=== PATIENT | female | born 1975 | race Two or more races ===

== ENCOUNTER 2025-01-02 18:42 | Inpatient (IN) | payer MEDICARE, OTHER ==
[~2025-01-02] VITALS: Ht 152.4 cm; Wt 204.2 kg
[~2025-01-02 18:42] MED LIST: BUDE1AER5 INH
--- NOTE | 2025-01-02 19:00 | ED.PDOC ---
SOB-HPI HPI Comments HPI: 49-year-old female who came to the ER for shortness of breath. Patient is morbidly obese, does have COPD and asthma, used to be on oxygen p.r.n. basis, however has been off her oxygen for the past week. The patient developed shortness of breath for the past 20 minutes despite taking albuterol. Patient was saturating 83% on room air. Past Medical History: COPD, asthma, hypertension, endometrial cancer, sleep apnea, morbid obesity Surgical history: Hysterectomy Family history: Unremarkable Personal and Social History: Unremarkable HPI: Poor Historian. All symptoms have resolved prior to arrival wants the patient was placed on supplemental oxygen by EMS. She is back to her baseline. The patient was hypoxic in the 80s at room air. She typically uses oxygen as needed. She did use her breathing treatment inhaler today once. Past Medical History: Past Surgical History: REVIEW OF SYSTEMS: CONSTITUTIONAL: Denies acute: fever, diaphoresis, chills, HEAD: Denies acute: headache, photophobia Eyes: Denies acute: Double vision, vision loss, eye pain, eye discharge. EARS: Denies acute: tinnitus, hearing loss, ear discharge, ear pain, THROAT: Denies acute: sore throat, swelling, difficulty swallowing , pain with swallowing, change in voice. NECK: Denies acute: neck pain, neck swelling, stiff neck. HEART: Denies acute : chest pain, palpitations, LUNGS: Denies acute: wheezing, cough, hemoptysis ABDOMEN: Denies acute: abdominal pain, Nausea, Vomiting, diarrhea, melena , hematemesis, hematochezia SKIN: Denies acute: rash, redness, lesions, itchiness. EXTREMITIES: Denies acute: calf pain, numbness, tingling, weakness, denies pain in extremity. Denies acute: Low back pain. Neuro: Denies acute: focal neurological deficit, motor or sensory focal neurological deficit, tremors, seizure like activity, confusion, dizziness, change in mental status, loss of bowel or bladder function, cauda equina like symptoms. : Denies acute: dysuria, hematuria, flank pain, increase in urinary frequency. PSYCH: Denies acute: hallucination, suicidal ideation, homicidal ideation. FEMALE: Denies acute: abnormal vaginal bleeding, foul odor, unusual discharge. PHYSICAL EXAM: General: ----no----acute distress, awake and alert. Head: normocephalic, atraumatic. No raccoon's eyes, no wills sign. Neck: supple, trachea is midline, no swelling. Throat: Normal phonation. Eyes:, no erythema, no purulent discharge, no proptosis, no icterus. Heart: regular rate, regular rhythm, no significant murmur appreciated. Lungs: no apparent respiratory distress, Able to speak in full sentences. No wheezing, no rhonchi, no crackles. No stridors Clear to auscultation bilaterally. Abdomen: non tender to palpation, non distended, soft, no guarding, no rebound, + bowel sounds. Morbidly obese Neuro: Awake, Alert, oriented to name, self, situation, follows commands GCS=15. Speech is normal. Skin: no petechia, no purpura, no cyanosis, non-pale, not jaundice. Lower extremities: --1/4 b/l - Pitting edema no deformity, no focal swelling, no calf TTP. Makes eye contact. moves all four extremities. Face: no apparent facial droop. ED COURSE: DISCLAIMER: This medical document was created using an electronic medical record system with voice recognition software and computerized dictation system. Although this document has been carefully reviewed, there might still be some phonetic and typographical errors. Occasional wrong-word or "sound-alike" substitutions may have occurred due to the inherent limitations of voice recognition software. These areas are purely typographical due to imperfections of the software programs and do not reflect any compromise in the patient's medical care. Please read the chart carefully and recognize, using context, where these substitutions have occurred. Chief Complaint: Shortness of Breath Time Seen by MD: 19:00 Reviewed notes: Surgical Pathologist Notes, Allergies Information Source: Patient, Emergency Med Personnel Mode of Arrival: EMS Past Medical History PAST MEDICAL HISTORY: Asthma, COPD, HTN Past Medical History (Other): Endometrial cancer, sleep apnea Surgical History: Hysterectomy ROLLER HAND History: Denies all ROLLER HAND Hx Family History Family History: Reviewed,noncontributory to illness Social History Smoker: Non-Smoker Alcohol: Denies ETOH Use Drugs: Denies Drug Use Lives In: Home Was a procedure done? Was a procedure done?: No Differential Dx Differential Diagnosis: Asthma, COPD, Other (DDx include ACS, unstable angina, anxiety, PE, pneumothroax, neoplasm, cardiac ischemia, COPD, asthma, CHF, pleural effusion, tobacco abuse, pneumonia, hypoxia, hypercapnia, anemia., infection/sepsis., pulmonary edema. Asthma, Cardiac tamponade, infection.) X-Ray, Labs, Meds, VS Vital Signs Date Time Temp Pulse Resp B/P (MAP) Pulse Ox O2 Delivery O2 Flow Rate FiO2 01/02/25 21:30 98.0 63 20 95/51 91 3.0 98.0 01/02/25 21:03 73 01/02/25 20:26 20 Nasal Cannula* 3 32 01/02/25 20:08 73 14 91 Nasal Cannula* 2 28 01/02/25 20:08 73 14 95/51 (66) 91 01/02/25 18:55 68 01/02/25 18:51 98.0 66 22 110/56 92 98.0 Lab Test 01/02/25 20:05 01/02/25 19:16 Range/Units Troponin I High Sensitivity 130 *H 111 *H </=34 ng/L White Blood Count 7.7 4.4-10.8 10^3/uL Red Blood Count 4.91 4.0-5.20 10^6/uL Hemoglobin 14.7 12.2-16.2 g/dL Hematocrit 45.4 36.0-46.0 % Mean Corpuscular Volume 92.5 80.0-100.0 fL Mean Corpuscular Hemoglobin 29.9 28.0-32.0 pg Mean Corpuscular Hemoglobin Concent 32.3 32.0-36.0 g/dL Red Cell Distribution Width 14.8 H 11.8-14.3 % Platelet Count 235 140-450 10^3/uL Mean Platelet Volume 8.7 6.9-10.8 fL Neutrophils (%) (Auto) 66.5 37.0-80.0 % Lymphocytes (%) (Auto) 21.8 10.0-50.0 % Monocytes (%) (Auto) 9.5 0.0-12.0 % Eosinophils (%) (Auto) 1.3 0.0-7.0 % Basophils (%) (Auto) 0.9 0.0-2.0 % Neutrophils # (Auto) 5.1 1.6-8.6 10 ^3/uL Lymphocytes # (Auto) 1.7 0.4-5.4 10 ^3/uL Monocytes # (Auto) 0.7 0-1.3 10 ^3/uL Eosinophils # (Auto) 0.1 0-0.8 10 ^3/uL Basophils # (Auto) 0.1 0-0.2 10 ^3/uL Nucleated Red Blood Cells 0.5 % Sodium Level 140 136-145 mmol/L Potassium Level 3.2 L 3.5-5.1 mmol/L Chloride Level 94 L 98-107 mmol/L Carbon Dioxide Level 38 H 20-31 mmol/L Anion Gap 8 5-15 Blood Urea Nitrogen 20 9-23 mg/dL Creatinine 0.95 0.550-1.02 mg/dL Glomerular Filtration Rate Calc 73 >90 mL/min BUN/Creatinine Ratio 21.1 H 10.0-20.0 Serum Glucose 115 H 74-106 mg/dL Calcium Level 8.8 8.7-10.4 mg/dL Total Bilirubin 0.7 0.2-1.0 mg/dL Aspartate Amino Transferase (AST) 46 H 13-40 U/L Alanine Aminotransferase (ALT) 57 H 7-40 U/L Alkaline Phosphatase 80 46-116 U/L B-Type Natriuretic Peptide 324.91 0-100 pg/mL Total Protein 7.0 5.7-8.2 g/dL Albumin 3.8 3.2-4.8 g/dL Current Medications Medications (Trade) Dose Ordered Sig/Batsheva Route Start Time Stop Time Status Last Admin Methylprednisolone Sodium Succinate (Solu Medrol) 125 mg ONCE ONCE IV 01/02/25 20:15 01/02/25 20:25 DC 01/02/25 21:48 Furosemide (Lasix Injection) 20 mg ONCE ONCE IV 01/02/25 20:15 01/02/25 20:25 DC 01/02/25 21:49 Aspirin (Ecotrin Enteric Coated Tablet) 325 mg ONCE ONCE PO 01/02/25 20:30 01/02/25 20:31 DC 01/02/25 21:[address] [address] Ph: [phone] DIAGNOSTIC IMAGING Diagnostic Imaging Report : [id number] Signed PATIENT: JENNIFER BOWEN ACCT: [id number] UNIT: [id number] : 1975 LOC: ER ROOM / BED: / AGE / SEX: 49 / F ADM STATUS: REG ER SERVICE 49 ORDERING PHYSICIAN: GUERO LUIS DO PROCEDURE(s): CXRP - CHEST PORTABLE REASON: sob ORDER NUMBER(s): [id number], ACCESSION NUMBER(s): [id number] CHEST RADIOGRAPH Indication: sob Technique: Single frontal view of the chest was obtained Comparison: None FINDINGS: Lines and Tubes: None Lungs: No focal consolidation. Pleura: No effusion. No pneumothorax. Cardiomediastinal contours: Cardiac size is enlarged. Mediastinum appears enlarged with a somewhat lobulated appearance. Can not exclude mediastinal adenopathy. Recommend CT of the chest with IV contrast. Bones: No acute osseous abnormality. IMPRESSION: 1. Cardiomegaly 2. Questionable mediastinal adenopathy recommend CT of the chest with IV contrast. ATED BY: HORACE DALLAS Jr., DO DICTATED DATE/TIME: 01/02/251931 SIGNED BY: HORACE DALLAS Jr., SIGNED DATE/TIME: 01/02/251931 CC: Time of 1ST Reevaluation: 18:56 Reevaluation 1ST: Unchanged Patient Education/Counseling: Diagnosis, Treatment Family Education/Counseling: No Family Present Comments MDM: patient presented with the above HPI.--dyspnea/hypoxemia----workup was initiated. patient was found with the above mentioned diagnosis. the following medications were ordered: please refer to order lists of meds and tests obtained by myself Dr. Luis. Patient ED course and VS have been stabilized. Patient has been reassessed in the ED and remained in a stable condition. Patient/family voices understanding and is agreeable with plan. Patient has been observed in the ED adequate length of time to insure improvement/stability. Escalation of care considered: Consideration of escalation to observation or admission Patient was given DuoNeb treatment, Solu-Medrol, Lasix. Patient was ADMITTED to the medicine team for further evaluation and treatment of their presentation. All the reports of any imaging studies that were ordered by myself were reviewed by myself. SEPSIS Sepsis Screen Date sepsis recognized/suspect: Jan 02, 2025 Time Sepsis recognized/suspect: 1844 Recent Procedure: No On Antibiotic Therapy: No Respiratory Rate >20: Yes Heart Rate >90: No Temp<36 C (96.8 F) or >38.3 C: No SBP <90 or MAP <65 mmHG: No New Acute Mental Status Change: No Is the patient on CPAP, BIPAP,: No Physician Orders Salvationist (01/02/25 ) Chest Portable (01/02/25 18:50) Albuterol Medneb (Ventolin Medneb) (01/02/25 21:30) Ipratropium Medneb (Atrovent Medneb) (01/02/25 21:30) Furosemide Injection (Lasix Injection) (01/03/25 10:00) Aspirin Tablet (01/03/25 10:00) Famotidine Injection (Pepcid Injection) (01/02/25 22:00) Methylprednisolone Sod Succ (Solu Medrol (01/02/25 22:00) Allergies (01/02/25 21:18) Code Status (01/02/25 21:18) Sodium Chloride Lock (Saline Lock Ns) (01/02/25 22:00) Oxygen Per Hour (01/02/25 21:18) Hydrocodone-Acet 5/325mg Tab ([place] 5/32 (01/02/25 21:30) Ondansetron Hcl (Zofran) (01/02/25 21:30) Docusate Sodium Capsule (Colace Capsule) (01/02/25 21:30) Complete Blood Count (01/03/25 04:00) Comprehensive Metabolic Panel (01/03/25 04:00) Cardiac Diet-2gna,Lofat,Lochol (01/03/25 Breakfast) Echo 2d Mode Cardiac Dop (01/02/25 21:18) Condition: Serious (01/02/25 21:18) Bedrest With Bathroom Privileg (01/02/25 21:18) Maintain Bed Rest (01/02/25 21:18) Sequential Compression Device (01/02/25 ) Vital Signs Date Time Temp Pulse Resp B/P (MAP) Pulse Ox O2 Delivery O2 Flow Rate FiO2 01/02/25 21:30 98.0 63 20 95/51 91 3.0 98.0 01/02/25 21:03 73 01/02/25 20:26 20 Nasal Cannula* 3 32 01/02/25 20:08 73 14 91 Nasal Cannula* 2 28 01/02/25 20:08 73 14 95/51 (66) 91 01/02/25 18:55 68 01/02/25 18:51 98.0 66 22 110/56 92 98.0 Laboratory Tests Test 01/02/25 19:16 White Blood Count 7.7 10^3/uL (4.4-10.8) Medications Medications Dose Ordered Sig/Batsheva Route Start Time Stop Time Status Last Admin Dose Admin Albuterol 2.5 mg STK-MED ONCE .ROUTE 01/02/25 20:20 01/02/25 20:20 DC 01/02/25 20:26 Aspirin 325 mg ONCE ONCE PO 01/02/25 20:30 01/02/25 20:31 DC 01/02/25 21:48 Furosemide 20 mg ONCE ONCE IV 01/02/25 20:15 01/02/25 20:25 DC 01/02/25 21:49 Ipratropium [place] 1 mg STK-MED ONCE .ROUTE 01/02/25 20:20 01/02/25 20:20 DC 01/02/25 20:26 Methylprednisolone Sodium Succinate 125 mg ONCE ONCE IV 01/02/25 20:15 01/02/25 20:25 DC 01/02/25 21:48 Departure 1 Departure Time of Disposition: 20:14 Impression: Primary Impression: Acute respiratory distress Additional Impressions: Elevated troponin Abnormal finding on CT scan Disposition: ADMITTED INPATIENT Admit to: [facility] Condition: Guarded Discharged With: Self Critical Care Note Critical Care Time?: Yes (45 min-critical care time only) Stability Stability form required: No Heart Score Heart Score: Heart Score Response (Comments) Value History Slightly Suspicious 0 EKG Normal 0 Age 45-64 1 Risk Factors 1 or 2 risk factors 1 Troponin 1-2 x's Normal limit 1 Total 3 I personally scribed for GUERO LUIS DO ([email or web address]) on 01/02/25 at 19:00. E lectronically submitted by Ousmane Barnes ([facility]). I personally scribed for GUERO LUIS DO ([email or web address]) on 01/02/25 at 19:54. Electronically submitted by Ousmane Barnes ([email or web address]). GUERO LUIS DO Jan 02, 2025 19:00
--- NOTE | 2025-01-02 19:10 | ECG ---
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
--- NOTE | 2025-01-02 19:35 | DVH ---
CHEST RADIOGRAPH Indication: sob Technique: Single frontal view of the chest was obtained Comparison: None FINDINGS: Lines and Tubes: None Lungs: No focal consolidation. Pleura: No effusion. No pneumothorax. Cardiomediastinal contours: Cardiac size is enlarged. Mediastinum appears enlarged with a somewhat lobulated appearance. Can not exclude mediastinal adenopathy. Recommend CT of the chest with IV contrast. Bones: No acute osseous abnormality. IMPRESSION: 1. Cardiomegaly 2. Questionable mediastinal adenopathy recommend CT of the chest with IV contrast.
[2025-01-02 19:37] LABS: Hematocrit 45.4 % (36.0-46.0); Hemoglobin 14.7 g/dL (12.2-16.2); Mean Corpuscular Hemoglobin 29.9 pg (28.0-32.0); Mean Corpuscular Volume 92.5 fL (80.0-100.0); Nucleated Red Blood Cells % 0.5 %
[2025-01-02 19:49] LABS: Albumin 3.8 g/dL (3.2-4.8); Alkaline Phosphatase 80 U/L (46-116); Anion Gap 8 (5-15); BUN/Creatinine Ratio 21.1 (10.0-20.0); Blood Urea Nitrogen 20 mg/dL (9-23); Calcium 8.8 mg/dL (8.7-10.4); Sodium 140 mmol/L (136-145); Total Protein 7.0 g/dL (5.7-8.2)
[2025-01-02 19:50] LABS: Bilirubin, Total 0.7 mg/dL (0.2-1.0)
[2025-01-02 20:03] LABS: Alanine Aminotransferase 57 U/L (7-40); Carbon Dioxide 38 mmol/L (20-31); Chloride 94 mmol/L (98-107); Glucose 115 mg/dL (74-106); Potassium 3.2 mmol/L (3.5-5.1)
[2025-01-02 20:08] VITALS: PULSE 73; RESP 14; O2SAT 91
[2025-01-02] MEDS: ALBUTEROL SULF 2.5 MG/0.5ML(0.5%) NEB SOLN ONE (20:26)
[2025-01-02] MEDS: IPRATROPIUM BROM 0.5 MG/2.5ML INH SOL ONE (20:26)
[2025-01-02 21:30] VITALS: BP 95/51; PULSE 63; RESP 20; TEMP 98; O2SAT 91
[2025-01-02] MEDS ORDERED: ONDANSETRON HCL 4 MG/2 ML VIAL IV PRN (21:30)
[2025-01-02] MEDS ORDERED: HYDROcodone-ACET 5/325MG TAB PO PRN (21:30)
[2025-01-02] MEDS ORDERED: ACETAMINOPHEN 325 MG TAB PO PRN ×2 (21:30→22:30)
--- NOTE | 2025-01-02 21:33 | DVHHP2 ---
History of Present Illness Reason for Visit: Acute respiratory distress History of Present Illness The patient is a 49-year-old female morbidly obese with past medical history of COPD, asthma, hypertension, sleep apnea, and endometrial cancer who presented to [facility] ED with complaint of shortness of breaths. Patient reports she has been experiencing difficulty breathing despite receiving breathing treatment with albuterol, desaturating at 83% on room air, increased work of breathing, getting worse that prompted this visit. Patient was seen and evaluated in the ED, laboratory data shows WBC 7.7, platelets 235, sodium 140, potassium 3.2, BUN 20, creatinine 0.95, GFR 73, glucose 115, calcium 8.8, BNP 324.91, troponin 111, AST 46, ALT 57, blood pressure 91/51, heart rate 72, temperature 98.0 F, O2 saturation 92% on oxygen. Chest x-ray revealing cardiomegaly, questionable mediastinal adenopathy recommended CT of the chest with IV contrast. Please see medication orders section in the computer. On my assessment, patient denies chest pain, no headache, dizziness, diaphoresis, currently on oxygen, no diarrhea, nausea, vomiting, fever, no chills. Patient was admitted for further evaluation and medical management. Past Medical History Morbid obesity, Asthma, COPD, HTN, Endometrial cancer, Sleep apnea Past Surgical History Hysterectomy Family History Reviewed, noncontributory to the management of this case. Past Social History The patient lives at home, denies smoking, alcohol or illicit drugs abuse. Review of Systems Constitutional: Yes: Weakness, Other (Morbid obesity); No: Fever, Chills, Sweats, Malaise Eyes: No: Pain, Vision change, Conjunctivae inflammation, Eyelid inflammation, Other, Redness ENT: No: Ear pain, Ear discharge, Nose pain, Nose discharge, Nose congestion, Mouth pain, Mouth swelling, Throat pain, Throat swelling, Other Respiratory: No: Cough, Dry, Shortness of breath, SOB with excertion, Wheezing, Hemoptysis, Pleuritic Pain, Sputum, Wheezing, Other Cardiovascular: No: Chest Pain, Palpitations, Orthopnea, Paroxysmal Noc. Dyspnea, Edema, Lt Headedness, Other Gastrointestinal: Abdominal Pain; No: Nausea, Vomiting, Diarrhea, Constipation, Melena, Hematochezia, Other Genitourinary: No Dysuria, No Frequency, No Incontinence, No Hematuria, No Retention, No Other Musculoskeletal: No: other, neck pain, shoulder pain, arm pain, back pain, hand pain, leg pain, foot pain Skin: No: Rash, Lesions, Jaundice, Bruising, Other Neurological: No: Weakness, Numbness, Incoordination, Change in speech, Confusion, Seizures, Other Allergies: Coded Allergies: NO KNOWN ALLERGIES (Unverified , 01/02/25) Medications Current Medications Medications Dose Ordered Sig/Batsheva Route Start Time Stop Time Status Last Admin Dose Admin Albuterol 2.5 mg Q4HPRN PRN NEB 01/02/25 21:30 Ipratropium [place] 0.5 mg Q4HPRN PRN NEB 01/02/25 21:30 Furosemide 40 mg DAILY IV 01/03/25 10:00 Aspirin 81 mg DAILY PO 01/03/25 10:00 Famotidine 20 mg Q12HR IV 01/02/25 22:00 UNV Methylprednisolone Sodium Succinate 40 mg Q8HR IV 01/02/25 22:00 Sodium Chloride 10 ml Q8HR IV 01/02/25 22:00 Acetaminophen/ Hydrocodone Bitart 1 tab Q4HP PRN PO 01/02/25 21:30 Ondansetron HCl 4 mg Q4HP PRN IV 01/02/25 21:30 Docusate Sodium 100 mg BIDPRN PRN PO 01/02/25 21:30 Acetaminophen 650 mg Q6HP PRN PO 01/02/25 21:30 Exam Vital Signs Vital Signs Date Time Temp Pulse Resp B/P (MAP) Pulse Ox O2 Delivery O2 Flow Rate FiO2 01/02/25 21:03 73 01/02/25 20:26 20 Nasal Cannula* 3 32 01/02/25 20:08 91 01/02/25 20:08 95/51 (66) 01/02/25 18:51 98.0 98.0 General Appearance: Alert, Oriented X3, Cooperative, No acute distress HEENT: Atraumatic, PERRLA, EOMI, Mucous membr. moist/pink Respiratory: Normal air movement, Other (On oxygen) Cardiovascular: Regular rate, Normal S1, Normal S2, No murmurs Abdominal: Normal bowel sounds, Soft, No hepatospenomegaly, No masses, Other (Reports tenderness) Extremities: No clubbing, No cyanosis, No edema, Normal pulses, No tenderness/swelling Skin: No rashes, No breakdown, No significant lesion Neuro: Normal speech, Normal tone, Sensation intact, Cranial nerves 3-12 NL, Reflexes 2+ Psych/Mental Status: Mental status NL, Mood NL Labs/Xrays Labs Test 01/02/25 20:05 01/02/25 19:16 Range/Units Troponin I High Sensitivity 130 *H </=34 ng/L White Blood Count 7.7 4.4-10.8 10^3/uL Red Blood Count 4.91 4.0-5.20 10^6/uL Hemoglobin 14.7 12.2-16.2 g/dL Hematocrit 45.4 36.0-46.0 % Mean Corpuscular Volume 92.5 80.0-100.0 fL Mean Corpuscular Hemoglobin 29.9 28.0-32.0 pg Mean Corpuscular Hemoglobin Concent 32.3 32.0-36.0 g/dL Red Cell Distribution Width 14.8 H 11.8-14.3 % Platelet Count 235 140-450 10^3/uL Mean Platelet Volume 8.7 6.9-10.8 fL Neutrophils (%) (Auto) 66.5 37.0-80.0 % Lymphocytes (%) (Auto) 21.8 10.0-50.0 % Monocytes (%) (Auto) 9.5 0.0-12.0 % Eosinophils (%) (Auto) 1.3 0.0-7.0 % Basophils (%) (Auto) 0.9 0.0-2.0 % Neutrophils # (Auto) 5.1 1.6-8.6 10 ^3/uL Lymphocytes # (Auto) 1.7 0.4-5.4 10 ^3/uL Monocytes # (Auto) 0.7 0-1.3 10 ^3/uL Eosinophils # (Auto) 0.1 0-0.8 10 ^3/uL Basophils # (Auto) 0.1 0-0.2 10 ^3/uL Nucleated Red Blood Cells 0.5 % Sodium Level 140 136-145 mmol/L Potassium Level 3.2 L 3.5-5.1 mmol/L Chloride Level 94 L 98-107 mmol/L Carbon Dioxide Level 38 H 20-31 mmol/L Anion Gap 8 5-15 Blood Urea Nitrogen 20 9-23 mg/dL Creatinine 0.95 0.550-1.02 mg/dL Glomerular Filtration Rate Calc 73 >90 mL/min BUN/Creatinine Ratio 21.1 H 10.0-20.0 Serum Glucose 115 H 74-106 mg/dL Calcium Level 8.8 8.7-10.4 mg/dL Total Bilirubin 0.7 0.2-1.0 mg/dL Aspartate Amino Transferase (AST) 46 H 13-40 U/L Alanine Aminotransferase (ALT) 57 H 7-40 U/L Alkaline Phosphatase 80 46-116 U/L B-Type Natriuretic Peptide 324.91 0-100 pg/mL Total Protein 7.0 5.7-8.2 g/dL Albumin 3.8 3.2-4.8 g/dL PATIENT: JENNIFER BOWEN ACCT: [id number] UNIT: [id number] : 1975 LOC: ER ROOM / BED: / AGE / SEX: 49 / F ADM STATUS: REG ER SERVICE 185 ORDERING PHYSICIAN: GUERO LUIS DO PROCEDURE(s): CXRP - CHEST PORTABLE REASON: sob ORDER NUMBER(s): [id number], ACCESSION NUMBER(s): [id number] CHEST RADIOGRAPH Indication: sob Technique: Single frontal view of the chest was obtained Comparison: None FINDINGS: Lines and Tubes: None Lungs: No focal consolidation. Pleura: No effusion. No pneumothorax. Cardiomediastinal contours: Cardiac size is enlarged. Mediastinum appears enlarged with a somewhat lobulated appearance. Can not exclude mediastinal adenopathy. Recommend CT of the chest with IV contrast. Bones: No acute osseous abnormality. IMPRESSION: 1. Cardiomegaly 2. Questionable mediastinal adenopathy recommend CT of the chest with IV contrast. SEPSIS Sepsis Screen Date sepsis recognized/suspect: Jan 02, 2025 Time Sepsis recognized/suspect: 20:08 Recent Procedure: No On Antibiotic Therapy: No Respiratory Rate >20: No Heart Rate >90: No Temp<36 C (96.8 F) or >38.3 C: No SBP <90 or MAP <65 mmHG: No New Acute Mental Status Change: No Is the patient on CPAP, BIPAP,: No Physician Orders Share Holder (01/02/25 ) Chest Portable (01/02/25 18:50) Troponin-I Hs (01/02/25 21:50) Albuterol Medneb (Ventolin Medneb) (01/02/25 21:30) Ipratropium Medneb (Atrovent Medneb) (01/02/25 21:30) Furosemide Injection (Lasix Injection) (01/03/25 10:00) Aspirin Tablet (01/03/25 10:00) Famotidine Injection (Pepcid Injection) (01/02/25 22:00) Methylprednisolone Sod Succ (Solu Medrol (01/02/25 22:00) Allergies (01/02/25:18) Code Status (01/02/25:18) Sodium Chloride Lock (Saline Lock Ns) (01/02/25 22:00) Oxygen Per Hour (01/02/25:18) Hydrocodone-Acet 5/325mg Tab ([place] (01/02/25 21:30) Ondansetron Hcl (Zofran) (01/02/25 21:30) Docusate Sodium Capsule (Colace Capsule) (01/02/25 21:30) Complete Blood Count (01/03/25 04:00) Comprehensive Metabolic Panel (01/03/25 04:00) Cardiac Diet-2gna,Lofat,Lochol (01/03/25 Breakfast) Echo 2d Mode Cardiac Dop (01/02/25:18) Condition: Serious (01/02/25 21:18) Acetaminophen Tablet (Tylenol Tablet) (01/02/25 21:30) Bedrest With Bathroom Privileg (01/02/25:18) Maintain Bed Rest (01/02/25:18) Sequential Compression Device (01/02/25 ) Admit (01/02/25 21:31) Nitroglycerin Sublingual (Ntrostat Subli (01/02/25 21:45) Morphine Sulfate Injection (01/02/25 21:45) Stat Ekg For Chest Pain (01/02/25:31) Notify Md Of Changes From Base (01/02/25 21:31) Supervisor Paper Coating For 24 Hours (01/02/25 21:31) Emergency Dysrhythmia Protocol (01/02/25 21:31) Rhythm Strips Once Every Shift (01/02/25 21:31) Oxygen By Nasal Cannula (11/6/25 21:31) Vital Signs Date Time Temp Pulse Resp B/P (MAP) Pulse Ox O2 Delivery O2 Flow Rate FiO2 01/02/25 21:03 73 01/02/25 20:26 20 Nasal Cannula* 3 32 01/02/25 20:08 73 14 91 Nasal Cannula* 2 28 01/02/25 20:08 73 14 95/51 (66) 91 01/02/25 18:55 68 01/02/25 18:51 98.0 66 22 110/56 92 98.0 Laboratory Tests Test 01/02/25 19:16 White Blood Count 7.7 10^3/uL (4.4-10.8) Medications Medications Dose Ordered Sig/Batsheva Route Start Time Stop Time Status Last Admin Dose Admin Albuterol 2.5 mg STK-MED ONCE .ROUTE 01/02/25 20:20 01/02/25 20:20 DC 01/02/25 20:26 2.5 MG Ipratropium [place] 1 mg STK-MED ONCE .ROUTE 01/02/25 20:20 01/02/25 20:20 DC 01/02/25 20:26 1 MG Assessment/Plan Assessment/Plan Acute respiratory distress Hypokalemia Elevated troponin Morbid obesity Generalized weakness Plan 1. Admit to telemetry unit 2. Breathing treatment 3. Pain control management 4. Management of fluids and electrolytes 5. Consultation for hospitalist 6. Diagnostic tests chest CT 7. DVT prophylaxis-on aspirin 8. Repeat labs CBC, CMP in a.m. 9. Continue with current medical management 10. Treatment plan discussed with patient and RN. Patient verbalized understanding. Plan discussed with: Patient, Other (RN) My Orders Orders - GLEN ROSADO DNP Procedure Category Date Status Time Albuterol Medneb PHA 01/02/25 In Process (Ventolin Medneb) 21:30 Ipratropium Medneb PHA 01/02/25 In Process (Atrovent Medneb) 21:30 Furosemide Injection PHA 01/03/25 In Process (Lasix Injection) 10:00 Aspirin Tablet PHA 01/03/25 In Process 10:00 Famotidine Injection PHA 01/02/25 In Process (Pepcid Injection) 22:00 Methylprednisolone PHA 01/02/25 In Process Sod Succ (Solu Medrol 22:00 Allergies SERENA 01/02/25 In Process 21:18 Code Status CODE 01/02/25 Transmitted 21:18 Sodium Chloride Lock PHA 01/02/25 In Process (Saline Lock Ns) 22:00 Oxygen Per Hour RT 01/02/25 Transmitted 21:18 Hydrocodone-Acet PHA 01/02/25 In Process 5/325mg Tab ([place] 21:30 Ondansetron Hcl PHA 01/02/25 In Process (Zofran) 21:30 Docusate Sodium PHA 01/02/25 In Process Capsule (Colace 21:30 Complete Blood Count LAB 01/03/25 Verified 04:00 Comprehensive LAB 01/03/25 Verified Metabolic Panel 04:00 Cardiac DIET 01/03/25 Transmitted Diet-2gna,Lofat,Lochol Breakfast Echo 2d Mode Cardiac US 01/02/25 Logged DOP 21:18 Condition: Serious SERENA 01/02/25 In Process 21:18 Acetaminophen Tablet PHA 01/02/25 In Process (Tylenol Tablet) 21:30 Bedrest With Bathroom SERENA 01/02/25 In Process Privileg 21:18 Maintain Bed Rest [facility] 01/02/25 In Process 21:18 Sequential [facility] 01/02/25 In Process Compression Device Admit ADMIT 01/02/25 Verified 21:31 Nitroglycerin [facility] 01/02/25 Verified Sublingual (Ntrostat 21:45 Morphine Sulfate PHA 01/02/25 Verified Injection 21:45 Stat Ekg For Chest [facility] 01/02/25 Verified Pain 21:31 Notify Md Of Changes [facility] 01/02/25 Verified From Base 21:31 Supervisor Paper Coating For [facility] 01/02/25 Verified 24 Hours 21:31 Emergency Dysrhythmia [facility] 01/02/25 Verified Protocol 21:31 Rhythm Strips Once [facility] 01/02/25 Verified Every Shift 21:31 Oxygen By Nasal RT 01/02/25 Verified Cannula 21:31 Problem List: (1) Acute respiratory distress (2) Hypokalemia (3) Elevated troponin (4) Morbid obesity (5) Generalized weakness Date of Service: Jan 02, 2025 Billing Provider: GLEN ROSADO DNP Common Visit Codes: [id number] INP/OBS CARE (HIGH) GLEN ROSADO DNP Jan 02, 2025 21:33
[2025-01-02] MEDS ORDERED: MORPHINE SULFATE INJ 2 MG/ml SYRG IV PRN (21:45)
[2025-01-02] MEDS ORDERED: NITROGLYCERIN 0.4 MG SL TAB SL PRN (21:45)
[2025-01-02] MEDS: methylPREDNISolone SOD SUCC 125 MG/2 ML VL IV ONE (21:48)
[2025-01-02] MEDS: ASPirin-EC 325mg tab PO ONE (21:48)
[2025-01-02] MEDS: FUROSEMIDE 20 MG/2 ML VIAL IV ONE (21:49)
[2025-01-02] MEDS: methylPREDNISolone SOD SUCC 40 MG/ML VL IV SCH (21:49)
[2025-01-02] MEDS: SODIUM CHLOR 0.9% PF (SALINE LOCK) 10ML VIAL/SYR IV SCH (21:49)
[2025-01-02] MEDS: FAMOTIDINE (10MG/ML) 2ML VL IV SCH (21:54)
[2025-01-02] MEDS: POTASSIUM CHL 20 Meq TABLET PO ONE (22:52)
[2025-01-02] MEDS: IOHEXOL 300 MG/ML 100ML BOTTLE IJ ONE (23:15)
--- NOTE | 2025-01-02 23:50 | DVH ---
Procedure: CT CHEST WITH CONTRAST Reason for study/Clinical History: Ruled out mediastinal adenopathy Comparison Study: XY CHEST PORTABLE on DOS: 01/02/25 Exam Date: 01/02/2025 11:15 PM Radiation Dose Information: CT Dose: CTDI volume is 18.49 mGy. Dose-length product is 695.38 mGy*cm Contrast: Type of contrast: Omnipaque 300 Contrast inject: 100 cc TECHNIQUE: After the uneventful administration of intravenous contrast intravenously, CT imaging was performed through the chest. Coronal and sagittal reformations were performed by the technologist. FINDINGS: Lower Neck: Visualized portions of the thyroid gland are unremarkable. Aorta and Vasculature: Normal caliber of thoracic aorta. No central, lobar, or segmental pulmonary embolus. Peripheral vessels are poorly opacified. Main pulmonary artery is enlarged measuring 4.4 cm. Prominent azygos vein. Lymph Nodes: No enlarged intrathoracic lymph nodes. Mediastinum: Heart size is normal. There is no pericardial effusion. The esophagus is unremarkable. Lungs: No focal consolidation, pleural effusion or significant pneumothorax. No suspicious pulmonary nodule or mass. Musculoskeletal: No acute osseous abnormality. Upper abdomen: Limited portions of the upper abdomen are unremarkable. IMPRESSION: Prominent azygos vein and central pulmonary arteries with no underlying adenopathy. All CT scans at this medical facility are performed using dose modulation techniques as appropriate to a performed exam including the following: Automated exposure control was utilized; adjustment of the MA and/or KV according to patient size; and use of iterative reconstruction technique.
[2025-01-02 23:58] VITALS: BP 119/61; PULSE 64; O2SAT 95
[2025-01-03] VITALS (13 sets, daily range): BP systolic 107–128; BP diastolic 61–73; PULSE 56–70; RESP 15–21; TEMP 97.9–98.1; O2SAT 90–97
[2025-01-03 04:24] LABS: Hematocrit 48.5 % (36.0-46.0); Hemoglobin 15.7 g/dL (12.2-16.2); Mean Corpuscular Hemoglobin 30.4 pg (28.0-32.0); Mean Corpuscular Volume 94.1 fL (80.0-100.0); Nucleated Red Blood Cells % 0.4 %
[2025-01-03 04:45] LABS: Albumin 4.2 g/dL (3.2-4.8); BUN/Creatinine Ratio 14.6 (10.0-20.0); Bilirubin, Total 0.8 mg/dL (0.2-1.0); Blood Urea Nitrogen 13 mg/dL (9-23); Potassium 3.6 mmol/L (3.5-5.1); Sodium 142 mmol/L (136-145); Total Protein 7.9 g/dL (5.7-8.2)
[2025-01-03 04:47] LABS: Alkaline Phosphatase 80 U/L (46-116); Anion Gap 10 (5-15); Calcium 9.0 mg/dL (8.7-10.4)
[2025-01-03 04:54] LABS: Alanine Aminotransferase 54 U/L (7-40); Carbon Dioxide 38 mmol/L (20-31); Chloride 94 mmol/L (98-107); Glucose 142 mg/dL (74-106)
[2025-01-03] MEDS: ALBUTEROL SULF 2.5 MG/0.5ML(0.5%) NEB SOLN NEB ONE (07:22)
[2025-01-03] MEDS: IPRATROPIUM BROM 0.5 MG/2.5ML INH SOL NEB ONE (07:22)
[2025-01-03] MEDS: ALBUTEROL SULF 2.5 MG/0.5ML(0.5%) NEB SOLN NEB PRN (08:07)
[2025-01-03] MEDS: IPRATROPIUM BROM 0.5 MG/2.5ML INH SOL NEB PRN (08:08)
[2025-01-03] MEDS: FUROSEMIDE 40 MG/4 ML VIAL IV SCH (09:57)
[2025-01-03] MEDS ORDERED: ACETAMINOPHEN 500 MG TAB or CAP PO PRN (11:15)
--- NOTE | 2025-01-03 12:10 | DVHPN2 ---
Progress Note Date Seen: Jan 03, 2025 Has the PT tested + for MRSA If YES, has PT been informed?: No Medical Necessity Reason Pt with a Central, PICC or Fol: No Subjective Patient reports: Feels better (Patient says she is feeling better after nebulizer and steroids.) Changes from previous H/P or p: No Changes Objective vital signs Vital Sign Date Time Temp Pulse Resp B/P (MAP) Pulse Ox O2 Delivery O2 Flow Rate FiO2 01/03/25 09:57 131/59 01/03/25 08:08 90 Nasal Cannula* 4 36 01/03/25 08:08 68 18 01/03/25 08:00 98.2 98.2 Total Intake and Output 01/02/25 01/02/25 01/03/25 15:00 23:00 07:00 Output Total 1500 ml Balance -1500 ml medications Current Medications Medications Dose Ordered Sig/Batsheva Route Start Time Stop Time Status Last Admin Dose Admin Albuterol 2.5 mg Q4HPRN PRN NEB 01/02/25 21:30 01/03/25 08:07 2.5 MG Ipratropium [employer] [place] 0.5 mg Q4HPRN PRN NEB 01/02/25 21:30 01/03/25 08:08 0.5 MG Furosemide 40 mg DAILY IV 01/03/25 10:00 01/03/25 09:57 40 MG Aspirin 81 mg DAILY PO 01/03/25 10:00 01/03/25 09:57 81 MG Famotidine 20 mg Q12HR IV 01/02/25 22:00 01/03/25 09:57 20 MG Methylprednisolone Sodium Succinate 40 mg Q8HR IV 01/02/25 22:00 01/03/25 05:18 40 MG Sodium Chloride 10 ml Q8HR IV 01/02/25 22:00 01/03/25 05:18 10 ML Acetaminophen/ Hydrocodone Bitart 1 tab Q4HP PRN PO 01/02/25 21:30 Ondansetron HCl 4 mg Q4HP PRN IV 01/02/25 21:30 Docusate Sodium 100 mg BIDPRN PRN PO 01/02/25 21:30 Nitroglycerin 0.4 mg Q5MINP PRN SL 01/02/25 21:45 Morphine Sulfate 2 mg Q30M PRN IV 01/02/25 21:45 Acetaminophen 500 mg Q6HP PRN PO 01/03/25 11:15 Examination: GENERAL:Normal, HEENT:Normal, NECK:Normal, LUNGS:Abnormal (Decreased breath sounds bilaterally), CVS:Normal, ABDOMEN:Normal, MSK:Normal, SKIN:Normal, NEURO:Normal laboratory and microbiology Laboratory Tests 01/03/25 03:44 Test 01/03/25 03:44 Range/Units Serum Glucose 142 H 74-106 mg/dL Labs and/or images reviewed: Labs reviewed by me, Image(s) reviewed by me Problem List/Assessment/Plan Problem List/Assessment/Plan Acute respiratory distress Hypokalemia Elevated troponin Morbid obesity Generalized weakness COPD exacerbation CHF IV Lasix 40 mg daily Solu-Medrol 40 mg q.8 hours Oxygen saturation goal greater than 92% CT chest ruled out PE Pending echo for elevated troponin lying [facility] to reconsult home meds Monitor for chest pain Plan discussed with: Patient Date of Service: Jan 03, 2025 Billing Provider: LUCERO GARCIA MD Common Visit Codes: [id number] SAME DATE (HIGH) LUCERO GARCIA MD Jan 03, 2025 12:10
[2025-01-03] MEDS ORDERED: OMEP10CA5 PO (15:51)
[2025-01-03] MEDS ORDERED: ALBUAER3 IN (15:51)
[2025-01-03] MEDS ORDERED: CHLO25TA2 PO (15:51)
[2025-01-03] MEDS ORDERED: POLYSOL2 EACHEYE (15:52)
[2025-01-03] MEDS ORDERED: ACET250T20 PO (15:53)
[2025-01-03] MEDS ORDERED: DOCU-94 PO (15:55)
[2025-01-03] MEDS ORDERED: CHOL20007 PO (15:55)
[2025-01-03] MEDS ORDERED: PRED20TA2 PO (15:55)
[2025-01-03] MEDS ORDERED: OYST500T28 PO (15:55)
[2025-01-03] MEDS ORDERED: TORS20TA20 PO (15:55)
[2025-01-03] MEDS: DOCUSATE SOD 100 MG CAP PO PRN (21:52)
[2025-01-03] MEDS: guaiFENesin-DM 100/10mg/5ml SYR PO PRN (21:53)
[2025-01-04] VITALS (12 sets, daily range): BP systolic 109–125; BP diastolic 48–72; PULSE 46–80; RESP 17–22; TEMP 97.6–98.4; O2SAT 92–99
[2025-01-04 05:48] LABS: Hematocrit 47.3 % (36.0-46.0); Hemoglobin 15.2 g/dL (12.2-16.2); Mean Corpuscular Hemoglobin 29.5 pg (28.0-32.0); Mean Corpuscular Volume 91.7 fL (80.0-100.0); Nucleated Red Blood Cells % 0.1 %
[2025-01-04 06:05] LABS: Anion Gap 8 (5-15); Potassium 3.6 mmol/L (3.5-5.1); Sodium 140 mmol/L (136-145)
[2025-01-04 06:06] LABS: Calcium 9.4 mg/dL (8.7-10.4)
[2025-01-04 06:10] LABS: Carbon Dioxide 39 mmol/L (20-31); Chloride 93 mmol/L (98-107)
[2025-01-04 06:11] LABS: BUN/Creatinine Ratio 27.0 (10.0-20.0); Blood Urea Nitrogen 20 mg/dL (9-23)
[2025-01-04 06:19] LABS: Glucose 128 mg/dL (74-106)
--- NOTE | 2025-01-04 17:46 | DVHPN2 ---
Subjective Overnight events noted. Patient currently denies any shortness of breath. She states that she feels diet. Changes from previous H/P or p: No Changes Eyes: No Pain, No Vision change, No Conjunctivae inflammation, No Eyelid inflammation, No Other, No Redness ENT: No Ear pain, No Ear discharge, No Nose pain, No Nose discharge, No Nose congestion, No Mouth pain, No Mouth swelling, No Throat pain, No Throat swelling, No Other Cardiovascular: No Chest Pain, No Palpitations, No Orthopnea, No Paroxysmal Noc. Dyspnea, No Edema, No Lt Headedness, No Other Respiratory: No Cough, No Dry, No Shortness of breath, No SOB with excertion, No Wheezing, No Hemoptysis, No Pleuritic Pain, No Sputum, No Other Gastrointestinal: Abdominal Pain Genitourinary: No Dysuria, No Frequency, No Incontinence, No Hematuria, No Retention, No Other Musculoskeletal: No other, No neck pain, No shoulder pain, No arm pain, No back pain, No hand pain, No leg pain, No foot pain Skin: No Rash, No Lesions, No Jaundice, No Bruising, No Other Objective Vitals Vital Signs Date Time Temp Pulse Resp B/P (MAP) Pulse Ox O2 Delivery O2 Flow Rate FiO2 01/04/25 17:00 97.6 46 20 120/67 (84) 97 97.6 01/04/25 08:00 Nasal Cannula* 3 32 Intake/Output Intake and Output 01/04/25 07:00 Intake Total 600 ml Balance 600 ml Intake Oral 600 ml # Voids 4 Exam HEENT pupils are reactive Neck is supple CVS S1-S2 regular rate and rhythm Respiratory bilateral equal breath sounds GI positive bowel sound Extremity no edema [employer] no motor deficit Medications Current Medications Medications Dose Ordered Sig/Batsheva Route Start Time Stop Time Status Last Admin Dose Admin Albuterol 2.5 mg Q4HPRN PRN NEB 01/02/25 21:30 01/03/25 23:54 2.5 MG Ipratropium [place] 0.5 mg Q4HPRN PRN NEB 01/02/25 21:30 01/03/25 23:54 0.5 MG Furosemide 40 mg DAILY IV 01/03/25 10:00 01/04/25 09:56 40 MG Aspirin 81 mg DAILY PO 01/03/25 10:00 01/04/25 09:56 81 MG Famotidine 20 mg Q12HR IV 01/02/25 22:00 01/04/25 09:56 20 MG Methylprednisolone Sodium Succinate 40 mg Q8HR IV 01/02/25 22:00 01/04/25 14:21 40 MG Sodium Chloride 10 ml Q8HR IV 01/02/25 22:00 01/04/25 14:22 10 ML Acetaminophen/ Hydrocodone Bitart 1 tab Q4HP PRN PO 01/02/25 21:30 Ondansetron HCl 4 mg Q4HP PRN IV 01/02/25 21:30 Docusate Sodium 100 mg BIDPRN PRN PO 01/02/25 21:30 01/03/25 21:52 100 MG Nitroglycerin 0.4 mg Q5MINP PRN SL 01/02/25 21:45 Morphine Sulfate 2 mg Q30M PRN IV 01/02/25 21:45 Acetaminophen 500 mg Q6HP PRN PO 01/03/25 11:15 Guaifenesin/ Dextromethorphan 10 ml Q6HPRN PRN PO 01/03/25 21:15 01/03/25 21:53 10 ML Laboratory Results Laboratory Tests 01/04/25 04:22 Chemistry Test 01/04/25 04:22 Calcium Level 9.4 mg/dL (8.7-10.4) Assessment/Plan Assessment/Plan 49-year-old female with known history of morbid obesity classIII, chronic asthma, congestive heart failure, chronic respiratory failure on home O2, obesity hypoventilation syndrome with sleep apnea presents to hospital with increasing shortness of breath found to have 1. Acute on chronic hypoxic respiratory failure 2. Acute on chronic asthma exacerbation next 3. Morbid obesity classIII 4. Obesity hypoventilation syndrome currently on CPAP at night 5. Elevated troponin. -cardiology consultation, continue O2 supplementation med nebs IV Solu-Medrol -diet weight reduction exercise counseling, CPAP at night Plan discussed with: Patient Date of Service: Jan 04, 2025 Billing Provider: ERASMO BENAVIDEZ MD Common Visit Codes: [id number] INP/OBS CARE(HIGH) ERASMO BENAVIDEZ MD Jan 04, 2025 17:46
[2025-01-05] VITALS (12 sets, daily range): BP systolic 123–146; BP diastolic 59–87; PULSE 49–100; RESP 18–21; TEMP 97–98.7; O2SAT 93–98
[2025-01-05 07:22] LABS: Hematocrit 45.6 % (36.0-46.0); Hemoglobin 14.8 g/dL (12.2-16.2); Mean Corpuscular Hemoglobin 30.2 pg (28.0-32.0); Mean Corpuscular Volume 93.0 fL (80.0-100.0); Nucleated Red Blood Cells % 0.2 %
[2025-01-05 08:15] LABS: Calcium 9.1 mg/dL (8.7-10.4)
[2025-01-05 08:20] LABS: BUN/Creatinine Ratio 22.4 (10.0-20.0); Blood Urea Nitrogen 19 mg/dL (9-23)
[2025-01-05 08:21] LABS: Carbon Dioxide 37 mmol/L (20-31); Glucose 116 mg/dL (74-106)
[2025-01-05 08:51] LABS: Anion Gap 9 (5-15); Chloride 95 mmol/L (98-107); Potassium 4.0 mmol/L (3.5-5.1); Sodium 141 mmol/L (136-145)
--- NOTE | 2025-01-05 11:03 | DVHSR ---
APPROVED REPORT EXAM: LIMITED Two-dimensional and M-mode echocardiogram with Doppler and color Doppler. Blood Pressure: 109/72 mmHg INDICATION elevated bnp RISK FACTORS Obesity: Height: 60, Weight: 450 DIMENSIONS LVDd 4.6 (3.8-5.7cm) LA (2D) 4.2 (1.9-4.0cm) Aortic Root 2.7 (2.0-3.7cm) LVDs 3.4 (2.5-4.0cm) LA (MM) (1.9-4.0cm) Aortic Cusp Exc 1.7 (1.5-2.0cm) EF (%) 50.0 (55-70%) Rt. Atrium 3.8 (1.9-4.0cm) Asc. Aorta cm IVSd 1.4 (0.7-1.1cm) RV (D) (1.8-2.4cm) PWd 1.0 (0.7-1.1cm) Mitral Valve Mitral Mitral Stenosis E wave 0.79m/s MV Mean GR. mmHg A wave 0.48m/s MV Peak GR. 51mmHg E/A ratio 1.6 2D MVA cm2 DECEL Time 247ms PRESS 1/2 Time ms Aortic Valve Aortic Valve Aortic Stenosis V1 0.64m/s AO Mean GR. mmHg V2 1.46m/s AO Peak GR. 9mmHg LVOT Diameter 2.1 (1.8-2.4cm) Doppler DANNY 1.52cm2 Tricuspid Valve TR Velocity 2.77m/s RVSP 31mmHg Other Information Technically limited study due to patient position.body habitus. Conclusion SEPTAL HYPERTHROPHY EF >55% LIMITED ECHO WINDOWS
[2025-01-05 14:53] LABS: Base Excess 12.6 mmol/L (-2.0-3.0)
--- NOTE | 2025-01-05 16:55 | DVHPN2 ---
Subjective Overnight events noted. Patient currently denies any shortness of breath. Patient is requesting DME walker. Order ABG on room air to assess for home oxygen requirement. Changes from previous H/P or p: No Changes Eyes: No Pain, No Vision change, No Conjunctivae inflammation, No Eyelid inflammation, No Other, No Redness ENT: No Ear pain, No Ear discharge, No Nose pain, No Nose discharge, No Nose congestion, No Mouth pain, No Mouth swelling, No Throat pain, No Throat swelling, No Other Cardiovascular: No Chest Pain, No Palpitations, No Orthopnea, No Paroxysmal Noc. Dyspnea, No Edema, No Lt Headedness, No Other Respiratory: No Cough, No Dry, No Shortness of breath, No SOB with excertion, No Wheezing, No Hemoptysis, No Pleuritic Pain, No Sputum, No Other Gastrointestinal: Abdominal Pain Genitourinary: No Dysuria, No Frequency, No Incontinence, No Hematuria, No Retention, No Other Musculoskeletal: No other, No neck pain, No shoulder pain, No arm pain, No back pain, No hand pain, No leg pain, No foot pain Skin: No Rash, No Lesions, No Jaundice, No Bruising, No Other Objective Vitals Vital Signs Date Time Temp Pulse Resp B/P (MAP) Pulse Ox O2 Delivery O2 Flow Rate FiO2 01/05/25 13:41 100 20 97 01/05/25 13:26 Nasal Cannula* 2 28 01/05/25 13:00 97.4 123/59 (80) 97.4 Intake/Output Intake and Output 01/05/25 07:00 Intake Total 1210 ml Balance 1210 ml Intake Oral 1210 ml # Voids 7 Exam HEENT pupils are reactive Neck is supple CVS S1-S2 regular rate and rhythm Respiratory bilateral equal breath sounds GI positive bowel sound Extremity no edema 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 Medications Current Medications Medications Dose Ordered Sig/Batsheva Route Start Time Stop Time Status Last Admin Dose Admin Albuterol 2.5 mg Q4HPRN PRN NEB 01/02/25 21:30 01/05/25 13:26 2.5 MG Ipratropium [place] 0.5 mg Q4HPRN PRN NEB 01/02/25 21:30 01/05/25 13:26 0.5 MG Furosemide 40 mg DAILY IV 01/03/25 10:00 01/05/25 10:17 40 MG Aspirin 81 mg DAILY PO 01/03/25 10:00 01/05/25 10:23 81 MG Famotidine 20 mg Q12HR IV 01/02/25 22:00 01/05/25 10:17 20 MG Methylprednisolone Sodium Succinate 40 mg Q8HR IV 01/02/25 22:00 01/05/25 14:00 40 MG Sodium Chloride 10 ml Q8HR IV 01/02/25 22:00 01/05/25 13:13 10 ML Acetaminophen/ Hydrocodone Bitart 1 tab Q4HP PRN PO 01/02/25 21:30 Ondansetron HCl 4 mg Q4HP PRN IV 01/02/25 21:30 Docusate Sodium 100 mg BIDPRN PRN PO 01/02/25 21:30 01/05/25 15:30 100 MG Nitroglycerin 0.4 mg Q5MINP PRN SL 01/02/25 21:45 Morphine Sulfate 2 mg Q30M PRN IV 01/02/25 21:45 Acetaminophen 500 mg Q6HP PRN PO 01/03/25 11:15 Guaifenesin/ Dextromethorphan 10 ml Q6HPRN PRN PO 01/03/25 21:15 01/03/25 21:53 10 ML Laboratory Results Laboratory Tests 01/05/25 06:00 Chemistry Test 01/05/25 06:00 Calcium Level 9.1 mg/dL (8.7-10.4) Blood Gas Results Test 01/05/25 14:45 Arterial Blood pH 7.456 (7.350-7.450) FiO2 % 21.0 Assessment/Plan Assessment/Plan 49-year-old female with known history of morbid obesity classIII, chronic asthma, congestive heart failure, chronic respiratory failure on home O2, obesity hypoventilation syndrome with sleep apnea presents to hospital with increasing shortness of breath found to have 1. Acute on chronic hypoxic respiratory failure secondary to acute asthma exacerbation as well as component of acute CHF exacerbation with a probably diastolic dysfunction. 2. Acute asthma exacerbation 3. Acute CHF exacerbation with a probably diastolic dysfunction 4. Morbid obesity classIII 5. Obesity hypoventilation syndrome currently on CPAP at night 5. Elevated troponin suspect demand ischemia secondary to acute CHF exacerbation. -cardiology consultation, continue O2 supplementation med nebs IV Solu-Medrol -diet weight reduction exercise counseling, CPAP at night -please arrange home O2 at 2 L by continuous nasal cannula. Plan discussed with: Patient My Orders Orders - ERASMO BENAVIDEZ MD Procedure Category Date Status Time * Cardiology Consult CONS 01/04/25 Transmitted 17:43 * Electronic Scale Subassembler CONS 01/05/25 Transmitted Consult Pt Request For Service PT 01/05/25 Logged 14:26 Abg W/ Co-Ox RT 01/05/25 Logged 14:26 Date of Service: Jan 05, 2025 Billing Provider: ERASMO BENAVIDEZ MD Common Visit Codes: [id number] INP/OBS CARE(HIGH) ERASMO BENAVIDEZ MD Jan 05, 2025 16:55
[2025-01-06] VITALS (14 sets, daily range): BP systolic 112–148; BP diastolic 53–90; PULSE 46–74; RESP 17–19; TEMP 97.5–98.5; O2SAT 85–100
[2025-01-06 05:39] LABS: Hematocrit 46.2 % (36.0-46.0); Hemoglobin 15.2 g/dL (12.2-16.2); Mean Corpuscular Hemoglobin 30.4 pg (28.0-32.0); Mean Corpuscular Volume 92.1 fL (80.0-100.0); Nucleated Red Blood Cells % 0.0 %
[2025-01-06 05:53] LABS: Potassium 4.1 mmol/L (3.5-5.1); Sodium 141 mmol/L (136-145)
[2025-01-06 05:54] LABS: Anion Gap 6 (5-15); Calcium 9.3 mg/dL (8.7-10.4); Carbon Dioxide 38 mmol/L (20-31); Chloride 97 mmol/L (98-107)
[2025-01-06 05:59] LABS: BUN/Creatinine Ratio 27.0 (10.0-20.0); Blood Urea Nitrogen 20 mg/dL (9-23); Glucose 127 mg/dL (74-106)
--- NOTE | 2025-01-06 16:13 | DVHPN2 ---
Subjective Overnight events noted. Patient currently denies any shortness of breath. Patient is requesting DME walker. Order ABG on room air to assess for home oxygen requirement. Changes from previous H/P or p: No Changes Eyes: No Pain, No Vision change, No Conjunctivae inflammation, No Eyelid inflammation, No Other, No Redness ENT: No Ear pain, No Ear discharge, No Nose pain, No Nose discharge, No Nose congestion, No Mouth pain, No Mouth swelling, No Throat pain, No Throat swelling, No Other Cardiovascular: No Chest Pain, No Palpitations, No Orthopnea, No Paroxysmal Noc. Dyspnea, No Edema, No Lt Headedness, No Other Respiratory: No Cough, No Dry, No Shortness of breath, No SOB with excertion, No Wheezing, No Hemoptysis, No Pleuritic Pain, No Sputum, No Other Gastrointestinal: Abdominal Pain Genitourinary: No Dysuria, No Frequency, No Incontinence, No Hematuria, No Retention, No Other Musculoskeletal: No other, No neck pain, No shoulder pain, No arm pain, No back pain, No hand pain, No leg pain, No foot pain Skin: No Rash, No Lesions, No Jaundice, No Bruising, No Other Objective Vitals Vital Signs Date Time Temp Pulse Resp B/P (MAP) Pulse Ox O2 Delivery O2 Flow Rate FiO2 01/06/25 13:21 97.5 51 19 124/68 (86) 97 97.5 01/06/25 09:09 Nasal Cannula 2.0 01/06/25 09:09 28 Intake/Output Intake and Output 01/06/25 07:00 Intake Total 1050 ml Balance 1050 ml Intake Oral 1050 ml # Voids 1 Exam HEENT pupils are reactive Neck is supple CVS S1-S2 regular rate and rhythm Respiratory bilateral equal breath sounds GI positive bowel sound 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 Medications Current Medications Medications Dose Ordered Sig/Batsheva Route Start Time Stop Time Status Last Admin Dose Admin Albuterol 2.5 mg Q4HPRN PRN NEB 01/02/25 21:30 01/06/25 09:09 2.5 MG Ipratropium [place] 0.5 mg Q4HPRN PRN NEB 01/02/25 21:30 01/06/25 09:08 0.5 MG Furosemide 40 mg DAILY IV 01/03/25 10:00 01/06/25 08:39 40 MG Aspirin 81 mg DAILY PO 01/03/25 10:00 01/06/25 08:37 81 MG Famotidine 20 mg Q12HR IV 01/02/25 22:00 01/06/25 08:37 20 MG Methylprednisolone Sodium Succinate 40 mg Q8HR IV 01/02/25 22:00 01/06/25 13:37 40 MG Sodium Chloride 10 ml Q8HR IV 01/02/25 22:00 01/06/25 13:37 10 ML Acetaminophen/ Hydrocodone Bitart 1 tab Q4HP PRN PO 01/02/25 21:30 Ondansetron HCl 4 mg Q4HP PRN IV 01/02/25 21:30 Docusate Sodium 100 mg BIDPRN PRN PO 01/02/25 21:30 01/06/25 05:31 100 MG Nitroglycerin 0.4 mg Q5MINP PRN SL 01/02/25 21:45 Morphine Sulfate 2 mg Q30M PRN IV 01/02/25 21:45 Acetaminophen 500 mg Q6HP PRN PO 01/03/25 11:15 Guaifenesin/ Dextromethorphan 10 ml Q6HPRN PRN PO 01/03/25 21:15 01/06/25 08:37 10 ML Laboratory Results Laboratory Tests 01/06/25 05:19 Chemistry Test 01/06/25 05:19 Calcium Level 9.3 mg/dL (8.7-10.4) Assessment/Plan Assessment/Plan 49-year-old female with known history of morbid obesity classIII, chronic asthma, congestive heart failure, chronic respiratory failure on home O2, obesity hypoventilation syndrome with sleep apnea presents to hospital with increasing shortness of breath found to have 1. Acute on chronic hypoxic respiratory failure secondary to acute asthma exacerbation as well as component of acute CHF exacerbation with a probably diastolic dysfunction. 2. Acute asthma exacerbation 3. Acute CHF exacerbation with a probably diastolic dysfunction 4. Morbid obesity classIII 5. Obesity hypoventilation syndrome currently on CPAP at night 5. Elevated troponin suspect demand ischemia secondary to acute CHF exacerbation. -cardiology consultation, continue O2 supplementation med nebs IV Solu-Medrol -diet weight reduction exercise counseling, CPAP at night -please arrange home O2 at 2 L by continuous nasal cannula. Please arrange DME front wheel walker. Plan discussed with: Patient My Orders Orders - ERASMO BENAVIDEZ MD Procedure Category Date Status Time * Senior Talent Management Consultant CONS 01/05/25 Transmitted Consult 16:56 Date of Service: Jan 06, 2025 Billing Provider: ERASMO BENAVIDEZ MD Common Visit Codes: [id number] INP/OBS CARE(HIGH) ERASMO BENAVIDEZ MD Jan 06, 2025 16:13
[2025-01-07] VITALS (9 sets, daily range): BP systolic 100–132; BP diastolic 48–70; PULSE 53–67; RESP 18–19; TEMP 36.3; O2SAT 90–97
[2025-01-07 06:13] LABS: Hematocrit 47.1 % (36.0-46.0); Hemoglobin 15.6 g/dL (12.2-16.2); Mean Corpuscular Hemoglobin 30.7 pg (28.0-32.0); Mean Corpuscular Volume 92.7 fL (80.0-100.0); Nucleated Red Blood Cells % 0.1 %
[2025-01-07 06:34] LABS: Anion Gap 9 (5-15); Potassium 4.0 mmol/L (3.5-5.1); Sodium 142 mmol/L (136-145)
[2025-01-07 06:36] LABS: Calcium 9.2 mg/dL (8.7-10.4)
[2025-01-07 06:41] LABS: BUN/Creatinine Ratio 24.4 (10.0-20.0); Blood Urea Nitrogen 21 mg/dL (9-23)
[2025-01-07 06:43] LABS: Carbon Dioxide 38 mmol/L (20-31); Chloride 95 mmol/L (98-107); Glucose 138 mg/dL (74-106)
[2025-01-07] MEDS ORDERED: PRED20TA2 PO (16:06)
--- NOTE | 2025-01-07 17:01 | DVHDS2 ---
Discharge Summary Date of Admission Jan 02, 2025 at 21:31 Date of Discharge: Jan 07, 2025 Labs/Diagnostic Data: Laboratory Results Test 01/07/25 04:56 01/05/25 14:45 01/03/25 03:44 01/02/25 22:09 White Blood Count 8.2 10^3/uL (4.4-10.8) Red Blood Count 5.08 10^6/uL (4.0-5.20) Hemoglobin 15.6 g/dL (12.2-16.2) Hematocrit 47.1 % (36.0-46.0) Mean Corpuscular Volume 92.7 fL (80.0-100.0) Mean Corpuscular Hemoglobin 30.7 pg (28.0-32.0) Mean Corpuscular Hemoglobin Concent 33.1 g/dL (32.0-36.0) Red Cell Distribution Width 14.6 % (11.8-14.3) Platelet Count 248 10^3/uL (140-450) Mean Platelet Volume 8.9 fL (6.9-10.8) Neutrophils (%) (Auto) 87.0 % (37.0-80.0) Lymphocytes (%) (Auto) 6.0 % (10.0-50.0) Monocytes (%) (Auto) 7.0 % (0.0-12.0) Eosinophils (%) (Auto) 0.0 % (0.0-7.0) Basophils (%) (Auto) 0.0 % (0.0-2.0) Neutrophils # (Auto) 7.1 10 ^3/uL (1.6-8.6) Lymphocytes # (Auto) 0.5 10 ^3/uL (0.4-5.4) Monocytes # (Auto) 0.6 10 ^3/uL (0-1.3) Eosinophils # (Auto) 0 10 ^3/uL (0-0.8) Basophils # (Auto) 0 10 ^3/uL (0-0.2) Nucleated Red Blood Cells 0.1 % Sodium Level 142 mmol/L (136-145) Potassium Level 4.0 mmol/L (3.5-5.1) Chloride Level 95 mmol/L (98-107) Carbon Dioxide Level 38 mmol/L (20-31) Anion Gap 9 (5-15) Blood Urea Nitrogen 21 mg/dL (9-23) Creatinine 0.86 mg/dL (0.550-1.02) Glomerular Filtration Rate Calc 83 mL/min (>90) BUN/Creatinine Ratio 24.4 (10.0-20.0) Serum Glucose 138 mg/dL (74-106) Calcium Level 9.2 mg/dL (8.7-10.4) Blood Gas Specimen Type Arterial Blood Gas Sample Site Right radial Blood Gas Patient Temperature 37.0 Arterial Blood Date Drawn Arterial Blood pH 7.456 (7.350-7.450) Arterial Blood Partial Pressure CO2 57.2 mmHg (32.0-45.0) Arterial Blood Partial Pressure O2 59.9 mmHg (83.0-108.0) Arterial Blood HCO3 39.4 mmol/L (21.0-28.0) Arterial Blood Oxygen Saturation 90.3 % (94.0-98.0) Arterial Blood Base Excess 12.6 mmol/L (-2.0-3.0) Arterial Blood Oxyhemoglobin 88.9 % (94.0-98.0) Arterial Blood Carboxyhemoglobin 1.3 % (0.5-1.5) Arterial Blood Methemoglobin 0.2 % (0.0-1.5) Jesus Test Yes Blood Gas Total Hemoglobin 16.50 g/dL (12.0-16.0) Blood Gas Modality Room air FiO2 % 21.0 Total Bilirubin 0.8 mg/dL (0.2-1.0) Aspartate Amino Transferase (AST) 44 U/L (13-40) Alanine Aminotransferase (ALT) 54 U/L (7-40) Alkaline Phosphatase 80 U/L (46-116) Total Protein 7.9 g/dL (5.7-8.2) Albumin 4.2 g/dL (3.2-4.8) Troponin I High Sensitivity 122 ng/L (</=34) Test 01/02/25 19:16 B-Type Natriuretic Peptide 324.91 pg/mL (0-100) Other Laboratory Tests 01/07/25 04:56 Brief Hx & Hospital Course: 49-year-old female with known history of morbid obesity classIII, chronic asthma, congestive heart failure, chronic respiratory failure on home O2, obesity hypoventilation syndrome with sleep apnea presents to hospital with increasing shortness of breath found to have acute on chronic hypoxic respiratory failure secondary to acute asthma as well as COPD exacerbation as well as acute CHF exacerbation with diastolic dysfunction. Patient was given IV diuretics Solu-Medrol. Patient was seen by Cardiology. Patient did qualify for home O2 and front wheel walker patient. Once that is arranged patient can be discharged home with a close follow up as an outpatient with the PCP. Condition at Discharge: Stable Final Diagnosis/Problems List 49-year-old female with known history of morbid obesity classIII, chronic asthma, congestive heart failure, chronic respiratory failure on home O2, obesity hypoventilation syndrome with sleep apnea presents to hospital with increasing shortness of breath found to have 1. Acute on chronic hypoxic respiratory failure secondary to acute asthma exacerbation as well as component of acute CHF exacerbation with a probably diastolic dysfunction. 2. Acute asthma exacerbation 3. Acute CHF exacerbation with a probably diastolic dysfunction 4. Morbid obesity classIII 5. Obesity hypoventilation syndrome currently on CPAP at night 5. Elevated troponin suspect demand ischemia secondary to acute CHF exacerbation. Discharge Disposition: Home with Health Services SNF Discharge Will this Physician continue t: No Discharge Instruct/Medications Diet: Cardiac 2g Na,low cholest Activity: No Restrictions, As Tolerated Follow Up/Referral: Please follow up with the PCP in one week Medications: Medication as reconciled, new prescription as prescribed. New Medications: Prednisone (Prednisone) 20 Mg Tab 40 MG PO DAILY for 5 Days, #10 MG Continued Medications: Acetazolamide (Acetazolamide) 250 Mg Tab 500 MG PO Q6HR PRN for PAIN SCALE 1 THRU 6 for 30 Days, MG 0 Refills Albuterol Sulfate (Ventolin Mdi) 90 Mcg Ih 90 MCG IN, INH Budesonide-Formoterol Fumarate (Budesonide/Formoterol Fum 80-4.5 Mcg/Act) 1 Aer Aer 1 AER INH UD for 30 Days, #10.2 Chlorthalidone (Chlorthalidone) 25 Mg Tab 1 TAB PO DAILY Cholecalciferol (Vitamin D3) 2,000 Unit Tab 1 TAB PO DAILY, #30 TAB 5 Refills Docusate Sodium (Colace) 100 Mg Cap 1 CAP PO BID, #30 CAP Omeprazole (Omeprazole Dr) 10 Mg Cap 1 CAP PO DAILY Oyster Shell Calcium (Calcium Oyster Shell) 500 Mg Tab 500 MG PO DAILY, TAB Polyethylene Glycol-Propylene (Systane) Barbara 1 DROP EACHEYE DAILY PRN for DRY EYES, #30 ML 5 Refills Torsemide (Torsemide) 20 Mg Tab 20 MG PO DAILY, MG Discontinued Medications: Prednisone (Prednisone) 20 Mg Tab 20 MG PO, MG Scheduled Budesonide-Formoterol Fumarate (Budesonide/Formoterol Fum 80-4.5 Mcg/Act), 1 AER INH UD, (Reported) Chlorthalidone (Chlorthalidone), 1 TAB PO DAILY, (Reported) Cholecalciferol (Vitamin D3), 1 TAB PO DAILY, (Reported) Docusate Sodium (Colace), 1 CAP PO BID, (Reported) Omeprazole (Omeprazole Dr), 1 CAP PO DAILY, (Reported) Oyster Shell Calcium (Calcium Oyster Shell), 500 MG PO DAILY, (Reported) Prednisone (Prednisone), 40 MG PO DAILY Torsemide (Torsemide), 20 MG PO DAILY, (Reported) Scheduled PRN Acetazolamide (Acetazolamide), 500 MG PO Q6HR PRN for PAIN SCALE 1 THRU 6, (Reported) Polyethylene Glycol-Propylene (Systane), 1 DROP EACHEYE DAILY PRN for DRY EYES, (Reported) Miscellaneous Medications Albuterol Sulfate (Ventolin Mdi), 90 MCG IN, (Reported) Prednisone (Prednisone), 20 MG PO, (Reported) Discharge Statement: "Patient was advised to return to the ER or call 911 if any headaches, dizziness, shortness of breath, chest pain, abdominal pain, bleeding, fevers, or worsening of medical condition. Patient was counseled about treatment plan, medications, possible side effects, patientverbalized understanding. All questions were answered to the best of my ability. This discharge took greater then 30 minutes in planning, reviewing documentation, counseling the patient, and discussing with other team members." ASSESSMENT ASSESSMENT Assessment 49-year-old female with known history of morbid obesity classIII, chronic asthma, congestive heart failure, chronic respiratory failure on home O2, obesity hypoventilation syndrome with sleep apnea presents to hospital with increasing shortness of breath found to have 1. Acute on chronic hypoxic respiratory failure secondary to acute asthma exacerbation as well as component of acute CHF exacerbation with a probably diastolic dysfunction. 2. Acute asthma exacerbation 3. Acute CHF exacerbation with a probably diastolic dysfunction 4. Morbid obesity classIII 5. Obesity hypoventilation syndrome currently on CPAP at night 5. Elevated troponin suspect demand ischemia secondary to acute CHF exacerbation. Date of Service: Jan 07, 2025 Billing Provider: ERASMO BENAVIDEZ MD Common Visit Codes: [id number] DISCH DAY >30min ERASMO BENAVIDEZ MD Jan 07, 2025 17:01
== END 2025-01-07 18:05 | disposition home or self-care (01) | DRG 291 ==
LOC: EDBD 18:42 → ER 18:50 → OVERFLOW 21:31 → TELE-CENTR 01-03 15:31
PROVIDERS: ADMIT Internal Medicine; ATTEND Internal Medicine
PROC: 5A09357 Assistance with Respiratory Ventilation, Less than 24 Consecutive Hours, Continuous Positive Airway Pressure (ICD-10-PCS; 2025-01-02)
PROC: 5A09357 Assistance with Respiratory Ventilation, Less than 24 Consecutive Hours, Continuous Positive Airway Pressure (ICD-10-PCS; principal; 2025-01-03)
PROC: 5A09357 Assistance with Respiratory Ventilation, Less than 24 Consecutive Hours, Continuous Positive Airway Pressure (ICD-10-PCS; 2025-01-04)
PROC: 5A09357 Assistance with Respiratory Ventilation, Less than 24 Consecutive Hours, Continuous Positive Airway Pressure (ICD-10-PCS; 2025-01-05)
PROC: 5A09357 Assistance with Respiratory Ventilation, Less than 24 Consecutive Hours, Continuous Positive Airway Pressure (ICD-10-PCS; 2025-01-06)
PROC: 5A09357 Assistance with Respiratory Ventilation, Less than 24 Consecutive Hours, Continuous Positive Airway Pressure (ICD-10-PCS; 2025-01-07)
DX: I11.0 Hypertensive heart disease with heart failure (principal); I50.33 Acute on chronic diastolic (congestive) heart failure; J96.21 Acute and chronic respiratory failure with hypoxia; I24.89 Other forms of acute ischemic heart disease; J44.1 Chronic obstructive pulmonary disease with (acute) exacerbation; E66.2 Morbid (severe) obesity with alveolar hypoventilation; J45.901 Unspecified asthma with (acute) exacerbation; Z68.45 Body mass index [BMI] 70 or greater, adult; E87.6 Hypokalemia; R79.89 Other specified abnormal findings of blood chemistry; Z90.710 Acquired absence of both cervix and uterus; Z99.81 Dependence on supplemental oxygen; Z79.82 Long term (current) use of aspirin
CPT/HCPCS: 36415; 36600; 71045; 71260; 80048; 80053; 82805; 83880; 84484; 85025; 93005; 93306; 94640; 94660; 97116; 97163; 97530; 99291; G0378; J3490

== ENCOUNTER 2025-01-31 12:51 | Inpatient (IN) | payer MEDICARE, OTHER ==
[~2025-01-31] VITALS: Ht 152.4 cm; Wt 194.4 kg
[~2025-01-31 12:51] MED LIST changes: +ACET250T20 PO; +ALBUAER3 IN; +CHLO25TA2 PO; +CHOL20007 PO; +DOCU-94 PO; +OMEP10CA5 PO; +OYST500T28 PO; +POLYSOL2 EACHEYE; +PRED20TA2 PO; +TORS20TA20 PO
--- NOTE | 2025-01-31 13:30 | ED.PDOC ---
SOB-HPI HPI Comments This is a 49 year old female SARAHA presenting to the ED with chief complaint of SOB. EMS reports patient has been feeling some SOB for the past few hours with associated low O2 saturation at 71% on RA. EMS relays that the patient was placed on 4L en route with her O2 going up to 91%. Patient states she no longer has SOB and feels better when on O2. Patient denies any chest pain, dizziness, fever, chills, or cough. Chief Complaint: Shortness of Breath Time Seen by MD: 13:28 Reviewed notes: Nurses Notes, Public Policy Manager Notes, Medications, Allergies Information Source: Patient, Emergency Med Personnel Mode of Arrival: EMS Severity: Moderate Timing: Hours Duration: Since onset Context: At Rest PE Risk Factors: None History of: COPD, CHF Prehospital treatment: Oxygen Modifying Factors: Nothing Past Medical History PAST MEDICAL HISTORY: Asthma, CHF, COPD, HTN Surgical History: Hysterectomy MANAGER OF PRODUCTION History: Denies all MANAGER OF PRODUCTION Hx Family History Family History: Reviewed,noncontributory to illness Social History Smoker: Non-Smoker Alcohol: Denies ETOH Use Drugs: Denies Drug Use Lives In: Home Constitutional: denies: chills, diaphoresis, fatigue, fever, malaise, sweats, weakness, others EENTM: denies: blurred vision, double vision, ear bleeding, ear discharge, ear drainage, ear pain, ear ringing, eye pain, eye redness, hearing loss, mouth pain, mouth swelling, nasal discharge, nose bleeding, nose congestion, nose pain, photophobia, tearing, throat pain, throat swelling, voice changes, others Respiratory: reports: shortness of breath; denies: cough, hemoptysis, orthopnea, SOB at rest, SOB with excertion, stridor, wheezing, others Cardiovascular: denies: chest pain, dizzy spells, diaphoresis, Dyspnea on exertion, edema, irregular heart beat, left arm pain, lightheadedness, palpitations, PND, syncope, others Gastrointestinal: denies: abdomen distended, abdominal pain, blood streaked bowels, constipated, diarrhea, dysphagia, difficulty swallowing, hematemesis, melena, nausea, poor appetite, poor fluid intake, rectal bleeding, rectal pain, vomiting, others Genitourinary: denies: abnormal vagina bleeding, burning, dyspareunia, dysuria, flank pain, frequency, hematuria, incontinence, pain, , vagina discharge, urgency, others Neurological: denies: dizziness, fainting, headache, left sided numbness, left sided weakness, numbness, paresthesia, pre-existing deficit, right sided numbness, right sided weakness, seizure, speech problems, tingling, tremors, weakness, others Musculoskeletal: denies: back pain, gout, joint pain, joint swelling, muscle pain, muscle stiffness, neck pain, others Integumetry: denies: bruises, change in color, change in hair/nails, dryness, laceration, lesions, lumps, rash, wounds, others Allergic/Immunocompromised: denies: Difficulty Healing, Frequent Infections, Hives, Itching, others Hematologic/Lymphatic: denies: anemia, blood clots, easy bleeding, easy bruising, swollen glands, others Endocrine: denies: excessive hunger, excessive sweating, excessive thirst, excessive urination, flushing, intolerance to cold, intolerance to heat, unexplained weight gain, unexplained weight loss, others Psychiatric: denies: anxiety, bipolar disorder, depression, hopeless, panic disorder, schizophrenia, sleepless, suicidal, others All Other Systems: Reviewed and Negative Physical Exam General Appearance: No Apparent Distress, Obese HEENT: Normal ENT Inspection, Pharynx Normal, TMs Normal Neck: Full Range of Motion, Non-Tender, Normal, Normal Inspection Respiratory: Chest Non-Tender, Lungs Clear, No Accessory Muscle Use, No Respiratory Distress, Other (Tachypneic, distant breath sounds) Cardiovascular: No Edema, No JVD, No Murmur, No Gallop, Normal Peripheral Pulses, Regular Rate/Rhythm Breast Exam: Deferred Gastrointestinal: No Organomegaly, Non Tender, No Pulsatile Mass, Normal Bowel Sounds, Soft Genitalia: Deferred Pelvic: Deferred Rectal: Deferred Extremities: No calf tenderness, Normal capillary refill, Normal inspection, N ormal range of motion, Non-tender, No pedal edema Musculoskeletal : Apperance: Normal Neurologic: Alert, council member II-XII nml as Tested, No Motor Deficits, Normal Affect, Normal Mood, No Sensory Deficits Cerebellar Function: Normal Reflexes: Normal Skin: Dry, Normal Color, Warm Lymphatic: No Adenopathy Was a procedure done? Was a procedure done?: No Differential Dx Differential Diagnosis: COPD, Pneumonia X-Ray, Labs, Meds, VS Vital Signs Date Time Temp Pulse Resp B/P (MAP) Pulse Ox O2 Delivery O2 Flow Rate FiO2 01/31/25 15:23 98.3 69 18 103/59 (74) 95 98.3 01/31/25 13:03 81 01/31/25 12:56 99.8 83 16 136/81 92 99.8 Lab Test 01/31/25 14:40 01/31/25 13:40 Range/Units Troponin I High Sensitivity 21 19 </=34 ng/L White Blood Count 6.7 4.4-10.8 10^3/uL Red Blood Count 5.00 4.0-5.20 10^6/uL Hemoglobin 15.2 12.2-16.2 g/dL Hematocrit 47.1 H 36.0-46.0 % Mean Corpuscular Volume 94.2 80.0-100.0 fL Mean Corpuscular Hemoglobin 30.3 28.0-32.0 pg Mean Corpuscular Hemoglobin Concent 32.2 32.0-36.0 g/dL Red Cell Distribution Width 15.5 H 11.8-14.3 % Platelet Count 206 140-450 10^3/uL Mean Platelet Volume 8.1 6.9-10.8 fL Neutrophils (%) (Auto) 73.0 37.0-80.0 % Lymphocytes (%) (Auto) 16.5 10.0-50.0 % Monocytes (%) (Auto) 7.6 0.0-12.0 % Eosinophils (%) (Auto) 2.0 0.0-7.0 % Basophils (%) (Auto) 0.9 0.0-2.0 % Neutrophils # (Auto) 4.9 1.6-8.6 10 ^3/uL Lymphocytes # (Auto) 1.1 0.4-5.4 10 ^3/uL Monocytes # (Auto) 0.5 0-1.3 10 ^3/uL Eosinophils # (Auto) 0.1 0-0.8 10 ^3/uL Basophils # (Auto) 0.1 0-0.2 10 ^3/uL Nucleated Red Blood Cells 0.2 % Sodium Level 142 136-145 mmol/L Potassium Level 2.9 L 3.5-5.1 mmol/L Chloride Level 96 L 98-107 mmol/L Carbon Dioxide Level > 40 *H 20-31 mmol/L Anion Gap 5.66697 5-15 Blood Urea Nitrogen 14 9-23 mg/dL Creatinine 0.74 0.550-1.02 mg/dL Glomerular Filtration Rate Calc 99 >90 mL/min BUN/Creatinine Ratio 18.9 10.0-20.0 Serum Glucose 141 H 74-106 mg/dL Calcium Level 8.8 8.7-10.4 mg/dL B-Type Natriuretic Peptide 136.37 0-100 pg/mL Time of 1ST Reevaluation: 14:28 Reevaluation 1ST: Unchanged Patient Education/Counseling: Diagnosis, Treatment Family Education/Counseling: No Family Present SEPSIS Sepsis Screen Date sepsis recognized/suspect: Jan 31, 2025 Time Sepsis recognized/suspect: 1256 Recent Procedure: No On Antibiotic Therapy: No Respiratory Rate >20: No Heart Rate >90: No Temp<36 C (96.8 F) or >38.3 C: No SBP <90 or MAP <65 mmHG: No New Acute Mental Status Change: No Is the patient on CPAP, BIPAP,: No Physician Orders Urinalysis (01/31/25 13:27) Chest Portable (01/31/25 13:27) Electrocardigram (01/31/25 13:27) Troponin-I Hs (01/31/25 16:27) Electrocardigram (01/31/25 14:27) Electrocardigram (01/31/25 16:27) Vital Signs Date Time Temp Pulse Resp B/P (MAP) Pulse Ox O2 Delivery O2 Flow Rate FiO2 01/31/25 15:23 98.3 69 18 103/59 (74) 95 98.3 01/31/25 13:03 81 01/31/25 12:56 99.8 83 16 136/81 92 99.8 Laboratory Tests Test 01/31/25 13:40 White Blood Count 6.7 10^3/uL (4.4-10.8) Departure 1 Departure Time of Disposition: 16:18 (Patient presented with acute shortness of breath concerning for acute on chronic COPD Exacerbation, Pneumonia, ACS, CHF, Pneumo thorax. Less likely PE, Dissection. Data: 1. I ordered and reviewed the result of at least 3 labs including a CBC, BMP, and Troponin. 2. I independently interpreted the following tests: Chest X-ray shows vascular congestion .Risk:This patient has a high risk of morbidity due to further diagnostic testing or treatment and may suffer from respiratory or cardiac etiology . Workup reveals a likely COPD Exacerbation and patient should be admitted for further workup. and possible expert consultation.) Impression: Primary Impression: Acute and chronic respiratory failure Additional Impressions: COPD (chronic obstructive pulmonary disease) Shortness of breath Disposition: ADMITTED INPATIENT Admit to: Tele Condition: Guarded Critical Care Note Critical Care Time?: Yes Critical care comment: Acute on chronic respiratory failure Authorized and Performed by: April Hedrick MD Total critical care time: Approximately 38 minutes Due to a high probability of clinically significant, life threatening deterioration, the patient required my highest level of preparedness to intervene emergently and I personally spent this critical care time directly and personally managing the patient. This critical care time included obtaining a history; examining the patient; pulse oximetry; ordering and review of studies; arranging urgent treatment with development of a management plan; evaluation of patient's response to treatment; frequent reassessment; and, discussions with other providers. This critical care time was performed to assess and manage the high probability of imminent, life-threatening deterioration that could result in multi-organ failure. It was exclusive of separately billable procedures and treating other patients and teaching time. Please see my other sections and the rest of the note for further information on patient assessment and treatment. Stability Stability form required: No Heart Score Heart Score: Heart Score Response (Comments) Value History N/A 0 EKG N/A 0 Age N/A 0 Risk Factors N/A 0 Troponin N/A 0 Total 0 I personally scribed for APRIL HEDRICK MD ([email or web address]) on 01/31/25 at 13:30. Electronically submitted by Yusuf Guerrero ([email or web address]). APRIL HEDRICK MD Jan 31, 2025 13:30
[2025-01-31 13:57] LABS: Hematocrit 47.1 % (36.0-46.0); Hemoglobin 15.2 g/dL (12.2-16.2); Mean Corpuscular Hemoglobin 30.3 pg (28.0-32.0); Mean Corpuscular Volume 94.2 fL (80.0-100.0); Nucleated Red Blood Cells % 0.2 %
[2025-01-31 14:10] LABS: Sodium 142 mmol/L (136-145)
[2025-01-31 14:12] LABS: Calcium 8.8 mg/dL (8.7-10.4)
[2025-01-31 14:17] LABS: BUN/Creatinine Ratio 18.9 (10.0-20.0); Blood Urea Nitrogen 14 mg/dL (9-23)
[2025-01-31 14:20] LABS: Anion Gap 5.99999 (5-15); Chloride 96 mmol/L (98-107); Potassium 2.9 mmol/L (3.5-5.1)
[2025-01-31 14:21] LABS: Glucose 141 mg/dL (74-106)
[2025-01-31 14:31] LABS: Carbon Dioxide > 40 mmol/L (20-31)
--- NOTE | 2025-01-31 15:27 | DVH ---
EXAM: XY CHEST PORTABLE HISTORY: sob COMPARISON: XY CHEST PORTABLE on DOS: 01/02/25, CT scan of the chest dated 01/02/2025. TECHNIQUE: Portable AP view of the chest was performed. FINDINGS: No pneumothorax, consolidative infiltrates, or pulmonary edema. The heart is enlarged. The central pulmonary arteries are ectatic, better characterized on prior CT scan. There is abundant overlying adipose tissue. IMPRESSION: 1. No acute intrathoracic process. 2. Cardiomegaly and obesity. 3. Pulmonary arterial hypertension.
[2025-01-31] MEDS: methylPREDNISolone SOD SUCC 125 MG/2 ML VL IV ONE ×2 (16:30→20:39)
[2025-01-31] MEDS: ALBUTEROL SULF 2.5 MG/0.5ML(0.5%) NEB SOLN NEB ONE ×2 (17:01→18:05)
[2025-01-31] MEDS: IPRATROPIUM BROM 0.5 MG/2.5ML INH SOL NEB ONE ×2 (17:01→18:05)
[2025-01-31] MEDS ORDERED: MORPHINE SULFATE INJ 2 MG/ml SYRG IV PRN (17:45)
[2025-01-31] MEDS ORDERED: ONDANSETRON HCL 4 MG/2 ML VIAL IV PRN (17:45)
[2025-01-31] MEDS ORDERED: NITROGLYCERIN 0.4 MG SL TAB SL PRN (17:45)
--- NOTE | 2025-01-31 17:59 | DVHHP2 ---
History of Present Illness Reason for Visit: sob History of Present Illness 49-year-old female with a past medical history significant for pulmonary artery hypertension, systemic hypertension, cardiomegaly, asthma, congestive heart failure (CHF), morbid obesity, COPD, chronic hypoxemic respiratory failure, hysterectomy, and a history of falls presents after developing worsening fatigue and hypoxia. Patient arrived in the ED lobby in a wheelchair. She reports that yesterday she felt unusually sleepy and noticed pressure in her head. She took a nap and later realized her oxygen saturation had dropped. She remained on her home 2 L nasal cannula but states that this morning, after waking up, her oxygen level dropped into the low 60s to 71%. Due to her symptoms and worsening shortness of breath compared to baseline, she presented to the ED for evaluation. She is from [place] and is currently in the area visiting family for [place]. At presentation, she is on 2 L oxygen via nasal cannula. She reports prior hospitalizations. She denies chest pain, cough, or fever. She reports mild swelling in her lower extremities. She takes Lasix every other day due to cramping. Imaging reviewed in the ED shows on chest x-ray: cardiomegaly, obesity-related pulmonary hypertension. Labs: potassium 2.9, chloride 96, glucose 141, CO? 40, troponins 2 negative. BNP 136.37. She uses CPAP at night for sleep apnea. She reports that no recent echocardiogram has been performed. Plan in ED includes Lasix administration, ABG, and oxygen supplementation; saturations improved to 94% on oxygen on 4 l nc, will admit to tele for further workup Past Medical History See HPI above Past Surgical History See HPI above Family History Reviewed, non-contributory to the management of this case. Past Social History Patient appears to be a smoker denies drug or alcohol use Review of Systems Constitutional: No: Fever, Chills, Sweats, Weakness, Malaise, Other Eyes: No: Pain, Vision change, Conjunctivae inflammation, Eyelid inflammation, Other, Redness ENT: No: Ear pain, Ear discharge, Nose pain, Nose discharge, Nose congestion, Mouth pain, Mouth swelling, Throat pain, Throat swelling, Other Respiratory: Shortness of breath, SOB with excertion; No: Cough, Dry, Wheezing, Hemoptysis, Pleuritic Pain, Sputum, Wheezing, Other Cardiovascular: No: Chest Pain, Palpitations, Orthopnea, Paroxysmal Noc. Dyspnea, Edema, Lt Headedness, Other Gastrointestinal: No: Nausea, Vomiting, Abdominal Pain, Diarrhea, Constipation, Melena, Hematochezia, Other Genitourinary: No Dysuria, No Frequency, No Incontinence, No Hematuria, No Retention, No Other Musculoskeletal: No: other, neck pain, shoulder pain, arm pain, back pain, hand pain, leg pain, foot pain Skin: No: Rash, Lesions, Jaundice, Bruising, Other Neurological: No: Weakness, Numbness, Incoordination, Change in speech, Confusion, Seizures, Other Allergies: Coded Allergies: NO KNOWN ALLERGIES (Unverified , 01/02/25) Exam Vital Signs Vital Signs Date Time Temp Pulse Resp B/P (MAP) Pulse Ox O2 Delivery O2 Flow Rate FiO2 01/31/25 17:02 18 98 Nasal Cannula* 3 32 01/31/25 15:23 98.3 69 103/59 (74) 98.3 General Appearance: Alert, Oriented X3, Cooperative, mild distress HEENT: Atraumatic, PERRLA, EOMI, Mucous membr. moist/pink Respiratory: Other (Diminished lung sounds throughout) Cardiovascular: Regular rate, Normal S1, Normal S2, No murmurs Abdominal: Normal bowel sounds, Soft, No tenderness, No hepatospenomegaly, No masses Extremities: No clubbing, No cyanosis, No edema, Normal pulses, No tenderness/swelling Skin: No rashes, No breakdown, No significant lesion Neuro: Normal speech, Strength at 5/5 X4 ext, Normal tone, Sensation intact, Other (Wheelchair bound) Psych/Mental Status: Mental status NL, Mood NL Labs/Xrays I reviewed labs, imaging CT scan abdomen pelvis, EKG and all diagnostic studies on this patient from ED records and the medical chart Labs Test 01/31/25 16:42 01/31/25 13:40 Range/Units Troponin I High Sensitivity 19 </=34 ng/L White Blood Count 6.7 4.4-10.8 10^3/uL Red Blood Count 5.00 4.0-5.20 10^6/uL Hemoglobin 15.2 12.2-16.2 g/dL Hematocrit 47.1 H 36.0-46.0 % Mean Corpuscular Volume 94.2 80.0-100.0 fL Mean Corpuscular Hemoglobin 30.3 28.0-32.0 pg Mean Corpuscular Hemoglobin Concent 32.2 32.0-36.0 g/dL Red Cell Distribution Width 15.5 H 11.8-14.3 % Platelet Count 206 140-450 10^3/uL Mean Platelet Volume 8.1 6.9-10.8 fL Neutrophils (%) (Auto) 73.0 37.0-80.0 % Lymphocytes (%) (Auto) 16.5 10.0-50.0 % Monocytes (%) (Auto) 7.6 0.0-12.0 % Eosinophils (%) (Auto) 2.0 0.0-7.0 % Basophils (%) (Auto) 0.9 0.0-2.0 % Neutrophils # (Auto) 4.9 1.6-8.6 10 ^3/uL Lymphocytes # (Auto) 1.1 0.4-5.4 10 ^3/uL Monocytes # (Auto) 0.5 0-1.3 10 ^3/uL Eosinophils # (Auto) 0.1 0-0.8 10 ^3/uL Basophils # (Auto) 0.1 0-0.2 10 ^3/uL Nucleated Red Blood Cells 0.2 % Sodium Level 142 136-145 mmol/L Potassium Level 2.9 L 3.5-5.1 mmol/L Chloride Level 96 L 98-107 mmol/L Carbon Dioxide Level > 40 *H 20-31 mmol/L Anion Gap 5.63211 5-15 Blood Urea Nitrogen 14 9-23 mg/dL Creatinine 0.74 0.550-1.02 mg/dL Glomerular Filtration Rate Calc 99 >90 mL/min BUN/Creatinine Ratio 18.9 10.0-20.0 Serum Glucose 141 H 74-106 mg/dL Calcium Level 8.8 8.7-10.4 mg/dL B-Type Natriuretic Peptide 136.37 0-100 pg/mL SEPSIS Sepsis Screen Date sepsis recognized/suspect: Jan 31, 2025 Time Sepsis recognized/suspect: 1255 Recent Procedure: No On Antibiotic Therapy: No Respiratory Rate >20: No Heart Rate >90: No Temp<36 C (96.8 F) or >38.3 C: No SBP <90 or MAP <65 mmHG: No New Acute Mental Status Change: No Is the patient on CPAP, BIPAP,: No Physician Orders Urinalysis (01/31/25 13:27) Chest Portable (01/31/25 13:27) Electrocardigram (01/31/25 13:27) Electrocardigram (01/31/25 14:27) Electrocardigram (01/31/25 16:27) Docusate Sodium Capsule (Colace Capsule) (01/31/25 22:00) (Nf) Budesonide-Formoterol Fumarate ([place] (01/31/25 17:45) (Nf) Cholecalciferol (Vitamin D3) (02/01/25 10:00) (Nf) Omeprazole (Omeprazole Dr) (02/01/25 10:00) (Nf) Oyster Shell Calcium (Calcium Oyste (02/01/25 10:00) Albuterol Medneb (Ventolin Medneb) (01/31/25 17:45) Albuterol Medneb (Ventolin Medneb) (01/31/25 17:45) Ipratropium Medneb (Atrovent Medneb) (01/31/25 17:45) Ipratropium Medneb (Atrovent Medneb) (01/31/25 17:45) Cont Med Neb Intial Tx (01/31/25 17:37) Methylprednisolone Sod Succ (Solu Medrol (01/31/25 17:45) Vital Signs Date Time Temp Pulse Resp B/P (MAP) Pulse Ox O2 Delivery O2 Flow Rate FiO2 01/31/25 17:02 18 98 Nasal Cannula* 3 32 01/31/25 15:23 98.3 69 18 103/59 (74) 95 98.3 01/31/25 13:03 81 01/31/25 12:56 99.8 83 16 136/81 92 99.8 Laboratory Tests Test 01/31/25 13:40 White Blood Count 6.7 10^3/uL (4.4-10.8) Medications Medications Dose Ordered Sig/Batsheva Route Start Time Stop Time Status Last Admin Dose Admin Albuterol 5 mg ONCE ONCE NEB 01/31/25 16:30 01/31/25 16:31 DC 01/31/25 17:01 5 MG Ipratropium [place] 0.5 mg ONCE ONCE NEB 01/31/25 16:30 01/31/25 16:31 DC 01/31/25 17:01 0.5 MG Assessment/Plan Assessment/Plan 49-year-old female with chronic cardiopulmonary disease, presenting with acute on chronic hypoxemic respiratory failure, lower extremity swelling, and hypoxia into the 6070% range at home, now admitted for management of acute respiratory decompensation in setting of CHF, COPD, pulmonary hypertension, hypokalemia, and obesity hypoventilation syndrome. Acute on chronic hypoxemic respiratory failure/hypercapnia failure Likely multifactorial: CHF, COPD, obesity hypoventilation, pulmonary HTN Maintain oxygen, target SpO2 > 92% ABG ordered ordered BiPAP if worsening hypercapnia or hypoxia Continuous pulse oximetry ordered duoneb prn ordered solumedrol no need for antibiotics no infection acute on chronic dialsylotic failure CHF with cardiomegaly and lower extremity swelling BNP 136.37mild Give IV Lasix bid recent echo complete 12/2024 ef 55% Reassess volume status after diuresis Pulmonary hypertension Seen on CXR Continue oxygen therapy had recent echo Monitor for right-sided heart strain acute on chronic COPD/asthma with exacerbation Continue home inhalers if available ordered Nebulizers PRN No fever or cough reported no need for antibotics Obesity hypoventilation syndrome / GRANT on CPAP Reinforce CPAP use during hospitalization and nighttime ordered BiPAP if CO2 elevated on ABG acute Hypokalemia (K 2.9) Replete potassium IV per protocol Recheck BMP and magnesium Monitor telemetry acute Hypochloremia (Cl 96) Monitor electrolytes with diuresis Replete as needed Morbid obesity Risk factor for hypoventilation Encourage mobility as tolerated ordered bipap CPAP-dependent GRANT Ensure CPAP set up at bedside chronic problem Pulmonary artery hypertension Hypertension Cardiomegaly Asthma CHF COPD Chronic hypoxemic respiratory failure Morbid obesity Obesity hypoventilation syndrome GRANT on CPAP Hysterectomy History of leg swelling/falls FEN / PPx Fluids: hl Electrolytes: Replete k aggressively; monitor Mg and BMP Nutrition: Cardiac diet; low sodium DVT Prophylaxis: Lovenox GI Prophylaxis: omperazole Disposition Admit to medicine for management of acute on chronic hypoxemic respiratory failure. Continue oxygen therapy, obtain ABG, administer IV Lasix, replete potassium, monitor electrolytes, and evaluate need for BiPAP. Plan discussed with: Patient My Orders Orders - EMELI VALADEZ DNP Procedure Category Date Status Time Docusate Sodium PHA 01/31/25 Verified Capsule (Colace 22:00 (NF) PHA 01/31/25 Verified Budesonide-Formoterol 17:45 (Nf) Cholecalciferol PHA 02/01/25 Verified (Vitamin D3) 10:00 (Nf) Omeprazole PHA 02/01/25 Verified (Omeprazole Dr) 10:00 (Nf) Oyster Shell PHA 02/01/25 Verified Calcium (Calcium Oyste 10:00 Albuterol Medneb PHA 01/31/25 Verified (Ventolin Medneb) 17:45 Albuterol Medneb PHA 01/31/25 Verified (Ventolin Medneb) 17:45 Ipratropium Medneb PHA 01/31/25 Verified (Atrovent Medneb) 17:45 Ipratropium Medneb PHA 01/31/25 Verified (Atrovent Medneb) 17:45 Cont Med Neb Intial Tx RT 01/31/25 Verified 17:37 Methylprednisolone PHA 01/31/25 Verified Sod Succ (Solu Medrol 17:45 Date of Service: Jan 31, 2025 Billing Provider: EMELI VALADEZ DNP Common Visit Codes: [id number] INP/OBS CARE (HIGH) EMELI VALADEZ DNP Jan 31, 2025 17:59
[2025-01-31] MEDS: FUROSEMIDE 20 MG/2 ML VIAL IV SCH (18:00)
[2025-01-31 18:46] LABS: Base Excess 9.8 mmol/L (-2.0-3.0)
[2025-01-31] MEDS: AZITHROMYCIN 250 MG TAB PO ONE (20:38)
[2025-01-31] MEDS: ENOXAPARIN SOD 40 MG/0.4 ML SYRINGE SC SCH (20:39)
[2025-01-31 20:46] VITALS: BP 102/63; PULSE 71; RESP 18; TEMP 98.3; O2SAT 99
[2025-01-31] MEDS ORDERED: DOCUSATE SOD 100 MG CAP PO SCH (22:00)
[2025-01-31] MEDS: BUDESONIDE (INHALATION) 0.5 MG/2 ML NEB NEB SCH (22:19)
[2025-01-31] MEDS: IPRATROPIUM BROM 0.5 MG/2.5ML INH SOL NEB PRN (22:19)
[2025-01-31] MEDS: ALBUTEROL SULF 2.5 MG/0.5ML(0.5%) NEB SOLN NEB PRN (22:19)
[2025-01-31 22:20] VITALS: PULSE 70; RESP 16; O2SAT 96
[2025-01-31 22:28] VITALS: PULSE 75; RESP 18; O2SAT 99
[2025-02-01] VITALS (15 sets, daily range): BP systolic 104–120; BP diastolic 60–69; PULSE 65–98; RESP 16–20; TEMP 97.3–99.3; O2SAT 92–98
[2025-02-01] MEDS: POTASSIUM CHL 20MEQ/100ML 100 ML IV ONE ×3 (03:54→13:53)
[2025-02-01] MEDS: POTASSIUM CHL 20MEQ/100ML 100 ML IV SCH (04:17)
[2025-02-01 07:57] LABS: Hematocrit 48.2 % (36.0-46.0); Hemoglobin 15.3 g/dL (12.2-16.2); Mean Corpuscular Hemoglobin 30.2 pg (28.0-32.0); Mean Corpuscular Volume 95.2 fL (80.0-100.0); Nucleated Red Blood Cells % 0.2 %
[2025-02-01 09:04] LABS: Alanine Aminotransferase 39 U/L (7-40); Albumin 3.8 g/dL (3.2-4.8); Alkaline Phosphatase 90 U/L (46-116); Anion Gap 10 (5-15); BUN/Creatinine Ratio 21.6 (10.0-20.0); Blood Urea Nitrogen 16 mg/dL (9-23); Calcium 8.9 mg/dL (8.7-10.4); Carbon Dioxide 39 mmol/L (20-31); Chloride 95 mmol/L (98-107); Glucose 156 mg/dL (74-106); Potassium 3.5 mmol/L (3.5-5.1); Sodium 144 mmol/L (136-145); Total Protein 6.5 g/dL (5.7-8.2)
[2025-02-01 09:05] LABS: Bilirubin, Total 0.6 mg/dL (0.2-1.0)
[2025-02-01] MEDS: CHOLECALCIFEROL (VITD3) 1,000UNIT=25mCg TAB PO SCH (09:47)
[2025-02-01] MEDS: methylPREDNISolone SOD SUCC 40 MG/ML VL IV SCH (09:47)
[2025-02-01] MEDS: CALCIUM CARB 500 MG CHEW TAB PO SCH (09:47)
[2025-02-01] MEDS ORDERED: FUROSEMIDE 20 MG/2 ML VIAL IV SCH (10:00)
[2025-02-01] MEDS: OMEPRAZOLE-SOD BICARB 20 MG POWDER PO SCH (10:58)
--- NOTE | 2025-02-01 17:52 | DVHPN2 ---
Subjective NO COMPLAINTS/o2 tank was not working/was empty and had to come to hospital/ Changes from previous H/P or p: No Changes Eyes: No Pain, No Vision change, No Conjunctivae inflammation, No Eyelid inflammation, No Other, No Redness ENT: No Ear pain, No Ear discharge, No Nose pain, No Nose discharge, No Nose congestion, No Mouth pain, No Mouth swelling, No Throat pain, No Throat swelling, No Other Cardiovascular: No Chest Pain, No Palpitations, No Orthopnea, No Paroxysmal Noc. Dyspnea, No Edema, No Lt Headedness, No Other Respiratory: No Cough, No Dry; Shortness of breath, SOB with excertion; No Wheezing, No Hemoptysis, No Pleuritic Pain, No Sputum, No Other Gastrointestinal: No Nausea, No Vomiting, No Abdominal Pain, No Diarrhea, No Constipation, No Melena, No Hematochezia, No Other Genitourinary: No Dysuria, No Frequency, No Incontinence, No Hematuria, No Retention, No Other Musculoskeletal: No other, No neck pain, No shoulder pain, No arm pain, No back pain, No hand pain, No leg pain, No foot pain Skin: No Rash, No Lesions, No Jaundice, No Bruising, No Other Objective Vitals Vital Signs Date Time Temp Pulse Resp B/P (MAP) Pulse Ox O2 Delivery O2 Flow Rate FiO2 02/01/25 17:32 117/64 02/01/25 17:29 98.3 70 16 97 98.3 02/01/25 10:00 Nasal Cannula* 5 40 Intake/Output Intake and Output 02/01/25 07:00 Intake Total 0 ml Balance 0 ml Intake Oral 0 ml General Appearance: Alert, Oriented X3, Cooperative Lungs: Clear to auscultation Cardiovascular: Regular rate, Normal S1, Normal S2 Abdomen: Soft, No tenderness, No hepatospenomegaly Musculoskeletal: Normal sensory function, Normal motor function Neuro: Normal gait, Normal speech, Strength at 5/5 X4 ext Psych/Mental Status: Mental status NL, Mood NL Medications Current Medications Medications Dose Ordered Sig/Batsheva Route Start Time Stop Time Status Last Admin Dose Admin Albuterol 2.5 mg Q6HR NEB 02/01/25 18:36 Cholecalciferol 2,000 unit DAILY PO 02/01/25 10:00 02/01/25 09:47 2,000 UNIT Omeprazole 20 mg DAILY PO 02/01/25 10:00 02/01/25 10:58 20 MG Calcium Carbonate 500 mg DAILY PO 02/01/25 10:00 02/01/25 09:47 500 MG Albuterol 2.5 mg Q4HPRN PRN NEB 01/31/25 17:45 01/31/25 22:19 2.5 MG Ipratropium [place] 0.5 mg Q4HPRN PRN NEB 01/31/25 17:45 01/31/25 22:19 0.5 MG Methylprednisolone Sodium Succinate 40 mg Q8HR IV 02/01/25 06:00 02/01/25 14:04 40 MG Furosemide 20 mg BIDD IV 01/31/25 18:00 02/01/25 17:32 20 MG Ondansetron HCl 4 mg Q4HP PRN IV 01/31/25 17:45 Docusate Sodium 100 mg BIDPRN PRN PO 01/31/25 17:45 Morphine Sulfate 2 mg Q4HPRN PRN IV 01/31/25 17:45 Enoxaparin Sodium 40 mg DAILY SC 01/31/25 17:45 02/01/25 09:47 40 MG Nitroglycerin 0.4 mg Q5MINP PRN SL 01/31/25 17:45 Budesonide 0.5 mg BID NEB 01/31/25 22:00 02/01/25 09:25 0.5 MG Laboratory Results Laboratory Tests 02/01/25 06:59 Chemistry Test 02/01/25 06:59 Albumin 3.8 g/dL (3.2-4.8) Calcium Level 8.9 mg/dL (8.7-10.4) Total Protein 6.5 g/dL (5.7-8.2) LFT Test 02/01/25 06:59 Alanine Aminotransferase (ALT) 39 U/L (7-40) Alkaline Phosphatase 90 U/L (46-116) Aspartate Amino Transferase (AST) 27 U/L (13-40) Total Bilirubin 0.6 mg/dL (0.2-1.0) Blood Gas Results Test 01/31/25 18:06 Arterial Blood pH 7.451 (7.350-7.450) FiO2 % 21.0 Assessment/Plan Assessment/Plan acute on chronic respiratory failure obesity hypoventilation syndrome secondary pulmonary htn Plan discussed with: Patient, Other My Orders Orders - KENNEDY GRANADOS MD Procedure Category Date Status Time * Vegetable Inspector CONS 02/01/25 Transmitted Consult Date of Service: Feb 01, 2025 Billing Provider: KENNEDY GRANADOS MD Common Visit Codes: [id number] INP/OBS CARE(MOD) KENNEDY GRANADOS MD Feb 01, 2025 17:52
[2025-02-01] MEDS: ALBUTEROL MEDNEB 2.5 mg/3ml NEB NEB SCH (17:57)
[2025-02-01] MEDS: ALBUTEROL SULF 2.5 MG/0.5ML(0.5%) NEB SOLN ONE (18:00)
[2025-02-01] MEDS: DOCUSATE SOD 100 MG CAP PO PRN (22:38)
[2025-02-02] VITALS (16 sets, daily range): BP systolic 109–122; BP diastolic 49–70; PULSE 65–82; RESP 16–20; TEMP 97.9–98.9; O2SAT 73–98
--- NOTE | 2025-02-02 14:49 | DVHPN2 ---
Subjective NO COMPLAINTS/o2 tank was not working/was empty and had to come to hospital/lead case manager is working on this Changes from previous H/P or p: No Changes Eyes: No Pain, No Vision change, No Conjunctivae inflammation, No Eyelid inflammation, No Other, No Redness ENT: No Ear pain, No Ear discharge, No Nose pain, No Nose discharge, No Nose congestion, No Mouth pain, No Mouth swelling, No Throat pain, No Throat swelling, No Other Cardiovascular: No Chest Pain, No Palpitations, No Orthopnea, No Paroxysmal Noc. Dyspnea, No Edema, No Lt Headedness, No Other Respiratory: No Cough, No Dry; Shortness of breath, SOB with excertion; No Wheezing, No Hemoptysis, No Pleuritic Pain, No Sputum, No Other Gastrointestinal: No Nausea, No Vomiting, No Abdominal Pain, No Diarrhea, No Constipation, No Melena, No Hematochezia, No Other Genitourinary: No Dysuria, No Frequency, No Incontinence, No Hematuria, No Retention, No Other Musculoskeletal: No other, No neck pain, No shoulder pain, No arm pain, No back pain, No hand pain, No leg pain, No foot pain Skin: No Rash, No Lesions, No Jaundice, No Bruising, No Other Objective Vitals Vital Signs Date Time Temp Pulse Resp B/P (MAP) Pulse Ox O2 Delivery O2 Flow Rate FiO2 02/02/25 10:00 95 Nasal Cannula 5.0 02/02/25 10:00 40 02/02/25 09:00 98.9 71 19 122/60 (80) 98.9 Intake/Output Intake and Output 02/02/25 07:00 Intake Total 1690 ml Balance 1690 ml Intake Oral 1690 ml # Voids 9 General Appearance: Alert, Oriented X3, Cooperative Lungs: Clear to auscultation Cardiovascular: Regular rate, Normal S1, Normal S2 Abdomen: Soft, No tenderness, No hepatospenomegaly Musculoskeletal: Normal sensory function, Normal motor function Neuro: Normal gait, Normal speech, Strength at 5/5 X4 ext Psych/Mental Status: Mental status NL, Mood NL Medications Current Medications Medications Dose Ordered Sig/Batsheva Route Start Time Stop Time Status Last Admin Dose Admin Albuterol 2.5 mg Q6HR NEB 02/01/25 18:36 02/01/25 17:57 2.5 MG Cholecalciferol 2,000 unit DAILY PO 02/01/25 10:00 02/02/25 11:54 2,000 UNIT Omeprazole 20 mg DAILY PO 02/01/25 10:00 02/02/25 11:53 20 MG Calcium Carbonate 500 mg DAILY PO 02/01/25 10:00 02/02/25 11:54 500 MG Albuterol 2.5 mg Q4HPRN PRN NEB 01/31/25 17:45 02/02/25 07:10 2.5 MG Ipratropium [place] 0.5 mg Q4HPRN PRN NEB 01/31/25 17:45 02/02/25 07:10 0.5 MG Methylprednisolone Sodium Succinate 40 mg Q8HR IV 02/01/25 06:00 02/02/25 06:17 40 MG Furosemide 20 mg BIDD IV 01/31/25 18:00 02/02/25 06:17 20 MG Docusate Sodium 100 mg BIDPRN PRN PO 01/31/25 17:45 02/02/25 06:17 100 MG Enoxaparin Sodium 40 mg DAILY SC 01/31/25 17:45 02/02/25 11:55 40 MG Budesonide 0.5 mg BID NEB 01/31/25 22:00 02/02/25 07:30 0.5 MG Laboratory Results Laboratory Tests 02/01/25 06:59 Assessment/Plan Assessment/Plan acute on chronic respiratory failure- better and at baseline obesity hypoventilation syndrome respiratory acidosis with metabolic compensation secondary pulmonary htn obesity arrange for continuous and portable o2 and dc home-when ready Plan discussed with: Patient, Other My Orders Orders - KENNEDY GRANADOS MD Procedure Category Date Status Time * Rn Anesthesiology CONS 02/01/25 Transmitted Consult Echo 2d Mode Cardiac US 02/01/25 Logged DOP 17:49 BIPAP RT 02/01/25 Logged 17:50 * Rn Anesthesiology CONS 02/02/25 Transmitted Consult Date of Service: Feb 02, 2025 Billing Provider: KENNEDY GRANADOS MD Common Visit Codes: [id number] INP/OBS CARE(MOD) KENNEDY GRANADOS MD Feb 02, 2025 14:49
[2025-02-03] VITALS (14 sets, daily range): BP systolic 115–136; BP diastolic 64–99; PULSE 62–78; RESP 16–21; TEMP 97.8–98.6; O2SAT 95–100
--- NOTE | 2025-02-03 06:51 | ECG ---
[facility] Test Date: 2025-01-31 Test Time: 13:03:38 Pat Name: JENNIFER BOWEN Department: [facility] Gender: F [employer] Consultant: COURTNEY : 1975 Requested By: APRIL MIRELES Order Number: [id number] Reading MD: Elliott Waterman Measurements Intervals [place] Rate: 81 P: 42 CT: 157 QRS: 100 QRSD: 98 T: 86 QT: 437 QTc: 508 Interpretive Statements Sinus rhythm Atrial premature complex Right axis deviation Borderline prolonged QT interval Baseline wander in lead(s) V3 Electronically Signed On 02-06-2025 18:59:45 PST by Elliott Waterman Please click the below link to view image of tracing.
[2025-02-03] MEDS ORDERED: BUDE1AER5 IN (14:00)
--- NOTE | 2025-02-03 14:39 | DVHDS2 ---
Discharge Summary Date of Admission Jan 31, 2025 at 17:37 Date of Discharge: Feb 03, 2025 Admitting Diagnosis Acute on chronic respiratory failure Labs/Diagnostic Data: Laboratory Results Test 02/01/25 06:59 01/31/25 18:06 01/31/25 16:42 01/31/25 13:40 White Blood Count 6.3 10^3/uL (4.4-10.8) Red Blood Count 5.07 10^6/uL (4.0-5.20) Hemoglobin 15.3 g/dL (12.2-16.2) Hematocrit 48.2 % (36.0-46.0) Mean Corpuscular Volume 95.2 fL (80.0-100.0) Mean Corpuscular Hemoglobin 30.2 pg (28.0-32.0) Mean Corpuscular Hemoglobin Concent 31.8 g/dL (32.0-36.0) Red Cell Distribution Width 15.2 % (11.8-14.3) Platelet Count 234 10^3/uL (140-450) Mean Platelet Volume 8.5 fL (6.9-10.8) Neutrophils (%) (Auto) 88.9 % (37.0-80.0) Lymphocytes (%) (Auto) 9.5 % (10.0-50.0) Monocytes (%) (Auto) 1.4 % (0.0-12.0) Eosinophils (%) (Auto) 0.0 % (0.0-7.0) Basophils (%) (Auto) 0.2 % (0.0-2.0) Neutrophils # (Auto) 5.6 10 ^3/uL (1.6-8.6) Lymphocytes # (Auto) 0.6 10 ^3/uL (0.4-5.4) Monocytes # (Auto) 0.1 10 ^3/uL (0-1.3) Eosinophils # (Auto) 0 10 ^3/uL (0-0.8) Basophils # (Auto) 0 10 ^3/uL (0-0.2) Nucleated Red Blood Cells 0.2 % Sodium Level 144 mmol/L (136-145) Potassium Level 3.5 mmol/L (3.5-5.1) Chloride Level 95 mmol/L (98-107) Carbon Dioxide Level 39 mmol/L (20-31) Anion Gap 10 (5-15) Blood Urea Nitrogen 16 mg/dL (9-23) Creatinine 0.74 mg/dL (0.550-1.02) Glomerular Filtration Rate Calc 99 mL/min (>90) BUN/Creatinine Ratio 21.6 (10.0-20.0) Serum Glucose 156 mg/dL (74-106) Calcium Level 8.9 mg/dL (8.7-10.4) Total Bilirubin 0.6 mg/dL (0.2-1.0) Aspartate Amino Transferase (AST) 27 U/L (13-40) Alanine Aminotransferase (ALT) 39 U/L (7-40) Alkaline Phosphatase 90 U/L (46-116) Total Protein 6.5 g/dL (5.7-8.2) Albumin 3.8 g/dL (3.2-4.8) Blood Gas Specimen Type Arterial Blood Gas Sample Site Right radial Blood Gas Patient Temperature 37.0 Arterial Blood Date Drawn [id number] Arterial Blood pH 7.451 (7.350-7.450) Arterial Blood Partial Pressure CO2 52.7 mmHg (32.0-45.0) Arterial Blood Partial Pressure O2 52.6 mmHg (83.0-108.0) Arterial Blood HCO3 35.9 mmol/L (21.0-28.0) Arterial Blood Oxygen Saturation 86.2 % (94.0-98.0) Arterial Blood Base Excess 9.8 mmol/L (-2.0-3.0) Arterial Blood Oxyhemoglobin 83.6 % (94.0-98.0) Arterial Blood Carboxyhemoglobin 2.5 % (0.5-1.5) Arterial Blood Methemoglobin 0.5 % (0.0-1.5) Arterial Blood Deoxyhemoglobin 13.4 % (0.0-5.0) Jesus Test Yes Blood Gas Total Hemoglobin 15.90 g/dL (12.0-16.0) Blood Gas Modality Room air FiO2 % 21.0 Blood Gas Critical Value Read Back Yes Blood Gas Notified [place]om [place] Blood Gas Notified Time [id number] Blood Gas Notified By Rt ayla michael Troponin I High Sensitivity 19 ng/L (</=34) B-Type Natriuretic Peptide 136.37 pg/mL (0-100) Other Laboratory Tests 02/01/25 06:59 Brief Hx & Hospital Course: History of Present Illness 49-year-old female with a past medical history significant for pulmonary artery hypertension, systemic hypertension, cardiomegaly, asthma, congestive heart failure (CHF), morbid obesity, COPD, chronic hypoxemic respiratory failure, hysterectomy, and a history of falls presents after developing worsening fatigue and hypoxia. Patient arrived in the ED lobby in a wheelchair. She reports that yesterday she felt unusually sleepy and noticed pressure in her head. She took a nap and later realized her oxygen saturation had dropped. She remained on her home 2 L nasal cannula but states that this morning, after waking up, her oxygen level dropped into the low 60s to 71%. Due to her symptoms and worsening shortness of breath compared to baseline, she presented to the ED for evaluation. She is from [place] and is currently in the area visiting family for [place]. At presentation, she is on 2 L oxygen via nasal cannula. She reports prior hospitalizations. She denies chest pain, cough, or fever. She reports mild swelling in her lower extremities. She takes Lasix every other day due to cramping. Imaging reviewed in the ED shows on chest x-ray: cardiomegaly, obesity-related pulmonary hypertension. Labs: potassium 2.9, chloride 96, glucose 141, CO? 40, troponins 2 negative. BNP 136.37. She uses CPAP at night for sleep apnea. She reports that no recent echocardiogram has been performed. Plan in ED includes Lasix administration, ABG, and oxygen supplementation; saturations improved to 94% on oxygen on 4 l nc, will admit to tele for further workup. Course of hospitalization: Patient was placed on O2 supplementation and BiPAP at night. She is placed on Solu-Medrol bronchodilators. For clinically she has improved back to her baseline. She is able to ambulate. Patient does not have oxygen, states that she did not having extension from her drapery operator. Patient will be discharged home on 2 L/min, which has already been provided to the patient. She will have a renewal of her Symbicort. Patient was instructed to follow up with her drapery operator when returning back to the [facility] area. She is agreeable with discharge plan. All questions answered. Physical examination General: Alert and Oriented x3. No acute distress. Well-nourished. Morbidly obese Eyes: EOMI. Anicteric. HENT: Moist mucous membranes. Lungs: No accessory muscle use. Decreased breath sounds bilaterally. Nasal cannula at 2 L/min. Cardiovascular: Regular rate and rhythm. No murmur. No JVD. Abdomen: Soft, non-tender and non-distended. No palpable masses. Extremities: No edema. Non-tender. Skin: No rashes or lesions. Warm. Neurologic: No focal neurological deficits. CN II-XII grossly intact, but not individually tested. Psychiatric: Cooperative. Appropriate mood and affect. Total time spent with patient discussing and formulating plan of care: 35 minutes. This medical document was created using an electronic medical record system with [employer] dictation system. Although this document has been carefully reviewed, there may still be some phonetic and typographical errors. These areas are purely typographical due to imperfections of the software programs, and do not reflect any compromise in the patient's medical care. Condition at Discharge: Fair Final Diagnosis/Problems List Acute Respiratory Failure acute on chronic respiratory failure obesity hypoventilation syndrome respiratory acidosis with metabolic compensation secondary pulmonary htn obesity Discharge Disposition: Home Discharge Instruct/Medications Diet: Regular Activity: No Restrictions, As Tolerated Follow Up/Referral: Can Slider in 1-2 weeks Medications: Continue all home medications Scheduled Budesonide-Formoterol Fumarate (Budesonide/Formoterol Fum 80-4.5 Mcg/Act), 1 AER INH UD, (Reported) Budesonide-Formoterol Fumarate (Budesonide/Formoterol Fum 80-4.5 Mcg/Act), 1 AER IN BID Chlorthalidone (Chlorthalidone), 1 TAB PO DAILY, (Reported) Cholecalciferol (Vitamin D3), 1 TAB PO DAILY, (Reported) Docusate Sodium (Colace), 1 CAP PO BID, (Reported) Omeprazole (Omeprazole Dr), 1 CAP PO DAILY, (Reported) Oyster Shell Calcium (Calcium Oyster Shell), 500 MG PO DAILY, (Reported) Prednisone (Prednisone), 40 MG PO DAILY Torsemide (Torsemide), 20 MG PO DAILY, (Reported) Scheduled PRN Polyethylene Glycol-Propylene (Systane), 1 DROP EACHEYE DAILY PRN for DRY EYES, (Reported) Miscellaneous Medications Albuterol Sulfate (Ventolin Mdi), 90 MCG IN, (Reported) Discontinued Medications Acetazolamide (Acetazolamide), 500 MG PO Q6HR PRN for PAIN SCALE 1 THRU 6, (Reported) 36 Discharge Statement: "Patient was advised to return to the ER or call 911 if any headaches, dizziness, shortness of breath, chest pain, abdominal pain, bleeding, fevers, or worsening of medical condition. Patient was counseled about treatment plan, medications, possible side effects, patientverbalized understanding. All questions were answered to the best of my ability. This discharge took greater then 30 minutes in planning, reviewing documentation, counseling the patient, and discussing with other team members." ASSESSMENT ASSESSMENT Assessment Acute Respiratory Failure Date of Service: Feb 03, 2025 Billing Provider: LEELA WALLER NP Common Visit Codes: [id number]/[id number] DISCH DAY >30min LEELA WALLER NP Feb 03, 2025 14:39
== END 2025-02-03 18:39 | disposition home or self-care (01) | DRG 189 ==
LOC: ER 12:51 → EDBD 12:51 → OVERFLOW 17:37 → TELE-EAST 02-01 03:35
PROVIDERS: ADMIT Nurse Practitioner Acute Care; ATTEND Nurse Practitioner Acute Care
PROC: 5A09357 Assistance with Respiratory Ventilation, Less than 24 Consecutive Hours, Continuous Positive Airway Pressure (ICD-10-PCS; principal; 2025-02-01)
PROC: 5A09357 Assistance with Respiratory Ventilation, Less than 24 Consecutive Hours, Continuous Positive Airway Pressure (ICD-10-PCS; 2025-02-03)
DX: J96.21 Acute and chronic respiratory failure with hypoxia (principal); E87.29 Other acidosis; I27.21 Secondary pulmonary arterial hypertension; E66.2 Morbid (severe) obesity with alveolar hypoventilation; Z68.45 Body mass index [BMI] 70 or greater, adult; J45.901 Unspecified asthma with (acute) exacerbation; I11.0 Hypertensive heart disease with heart failure; J44.1 Chronic obstructive pulmonary disease with (acute) exacerbation; E87.6 Hypokalemia; Z90.710 Acquired absence of both cervix and uterus; E87.8 Other disorders of electrolyte and fluid balance, not elsewhere classified; Z91.81 History of falling; Z79.899 Other long term (current) drug therapy; I50.9 Heart failure, unspecified
CPT/HCPCS: 36415; 36600; 71045; 80048; 80053; 82805; 83880; 84484; 85025; 93005; 94640; 94660; 99291; G0378; J3480